=== PATIENT | female | born 1930 | race Caucasian/White ===

== ENCOUNTER 2016-05-09 16:18 | Emergency (ER) | payer MEDICARE ==
--- NOTE | 2016-05-09 16:46 | ERPHSYRPT ---
- History of Present Illness Time Seen by Provider: 05/09/16 16:43 Patient Subjective Stated Complaint: LEFT KNEE PAIN SINCE YESTERDAY EVENING. HX OF ARTHRITIS AND THINKS THIS IS A FLARE UP Triage Nursing Assessment: TO ROOM PER EMS COT. SKIN W/D COLOR NORMAL. RESP NONLABORED. HAS 4 PLUS PITTING EDEMA BOTH LOWER LEGS AND FEET. PATIENT STATES THIS IS NORMAL. NO APPARENT INCREASED SWELLING TO LEFT KNEE, NO OBVIOUS SIGN OF INJURY. FAINT BILATERAL PEDAL PULSES. FEET WARM. Physician History: 86-year-old female with significant past medical history of hypertension, congestive heart failure, severe osteoarthritis and osteoporosis came to the emergency room with sudden development of the swelling on her left knee joint since yesterday and got worse today, so she came to the emergency room. She denies any fall. Timing/Duration: yesterday Associated Symptoms: denies symptoms Allergies/Adverse Reactions: Sulfa (Sulfonamide Antibiotics) Adverse Reaction (Mild, Verified 05/09/16 16:32) Nausea and Vomiting Home Medications: Furosemide [Lasix] 40 mg PO DAILY 06/24/13 [History] Potassium Chloride [Klor-Con 8] 8 meq PO DAILY 02/04/15 [History] Gabapentin [Neurontin] 300 mg PO TID 11/06/15 [History] Alprazolam 0.25 mg [xanAX 0.25 MG] 0.25 mg PO HS 05/09/16 [History] Ascorbate Calcium [Pam-C] 500 mg PO DAILY 05/09/16 [History] Lisinopril 10 mg [Zestril 10 MG] 10 mg PO DAILY 05/09/16 [History] Hx Tetanus, Diphtheria Vaccination/Date Given: Yes Hx Influenza Vaccination/Date Given: Yes Hx Pneumococcal Vaccination/Date Given: Yes - Review of Systems Constitutional: No Symptoms Eyes: No Symptoms Ears, Nose, & Throat: No Symptoms Respiratory: No Symptoms Cardiac: No Symptoms Abdominal/Gastrointestinal: No Symptoms Genitourinary Symptoms: No Symptoms Musculoskeletal: Joint Pain, Joint Swelling (left knee) - Past Medical History Pertinent Past Medical History: Yes Neurological History: TIA ENT History: Cataracts Cardiac History: Hypertension Respiratory History: No Pertinent History Endocrine Medical History: No Pertinent History Musculoskeletal History: Arthritis, Degenerative Disk Disease, Fractures, Osteoarthritis, Other GI Medical History: No Pertinent History History: No Pertinent History Psycho-Social History: No Pertinent History, Other Female Reproductive Disorders: No Pertinent History Other Medical History: swelling ble skin scratches on lower extremities - Past Surgical History Past Surgical History: Yes Neuro Surgical History: No Pertinent History Cardiac: No Pertinent History Respiratory: No Pertinent History Gastrointestinal: No Pertinent History Genitourinary: No Pertinent History Musculoskeletal: Other Female Surgical History: No Pertinent History Other Surgical History: Right shoulder OR in 1950, h/o right shoulder dislocation. 1988, pt states she has limited ROM. BACK SURGERY 2016 - Social History Smoking Status: Never smoker Exposure to second hand smoke: No Alcohol Use: None Drug Use: none Patient Lives Alone: Yes Significant Family History: no pertinent family hx - Female History Hx Now: No - Nursing Vital Signs Nursing Vital Signs: Initial Vital Signs Temperature 97.9 F Pulse Rate 74 Respiratory Rate 18 Blood Pressure [] 146/53 Pain Intensity 8 - Physical Exam General Appearance: no apparent distress, alert Eye Exam: PERRL/EOMI, eyes nml inspection Ears, Nose, Throat Exam: normal ENT inspection, TMs normal, pharynx normal, moist mucous membranes Neck Exam: normal inspection, non-tender, supple, full range of motion Respiratory Exam: normal breath sounds, lungs clear, No respiratory distress Cardiovascular Exam: regular rate/rhythm, normal heart sounds, normal peripheral pulses Gastrointestinal/Abdomen Exam: soft, normal bowel sounds, No tenderness, No mass Back Exam: normal inspection, normal range of motion, No CVA tenderness, No vertebral tenderness Extremity Exam: normal inspection, pelvis stable, inflammation (left knee), limited range of motion, swelling Neurologic Exam: alert, oriented x 3, cooperative, normal mood/affect, nml cerebellar function, nml station & gait, sensation nml, No motor deficits Skin Exam: normal color, warm, dry, No rash Lymphatic Exam: No adenopathy SpO2: 96 Oxygen Delivery: Room Air - Radiology Exams Knee X-ray Interpretation: Reviewed by me Ordered Tests: Active Orders 24 hr Category Date Time Status KNEE (3 VIEWS) Stat Exams 05/09/16 16:42 Taken CBC W DIFF Stat Lab 05/09/16 16:54 Completed CMP Stat Lab 05/09/16 16:54 Completed Uric Acid Stat Lab 05/09/16 16:54 Completed Medication Summary Discontinued Medications Generic Name Dose Route Start Last Admin Trade Name Freq PRN Reason Stop Dose Admin Ketorolac Tromethamine 60 mg 05/09/16 17:28 05/09/16 17:31 Toradol 30 Mg Injection IM 05/09/16 17:29 60 mg STAT ONE Administration Lab/Rad Data: Laboratory Result Diagrams 05/09/16 16:54 05/09/16 16:54 Laboratory Results 05/09/16 05/09/16 Range/Units 16:54 16:54 WBC 7.0 (4.0-10.5) K/mm3 RBC 3.85 L (4.1-5.4) M/mm3 Hgb 11.5 L (12.0-16.0) gm/dl Hct 36.7 (35-47) % MCV 95.3 (78-100) fl MCH 29.8 (26-32) pg MCHC 31.3 L (32-36) g/dl RDW 15.1 H (11.5-14.0) % Plt Count 182 (150-450) K/mm3 MPV 11.3 H (6-9.5) fl Gran % 81.4 H (36.0-66.0) % Lymphocytes % 11.1 L (24.0-44.0) % Monocytes % 6.5 (0.0-12.0) % Eosinophils % 0.4 (0.00-5.0) % Basophils % 0.6 (0.0-0.4) % Basophils # 0.04 (0-0.4) Sodium 140 (136-145) mEq/L Potassium 4.2 (3.5-5.1) mEq/L Chloride 102 (98-107) mEq/L Carbon Dioxide 27.6 (21-32) mEq/L Anion Gap 14.5 (5-15) MEQ/L BUN 20 (9-20) mg/dL Creatinine 1.26 (0.55-1.30) mg/dl Estimated GFR 43 ML/MIN Glucose 107 (70-110) MG/DL Uric Acid 7.1 H (2.6-6.0) mg/dL Calcium 9.9 (8.5-10.1) mg/dL Total Bilirubin 0.7 (0.2-1.0) mg/dL AST 45 H (15-37) U/L ALT 22 (12-78) U/L Alkaline Phosphatase 107 (46-116) U/L Serum Total Protein 7.2 (6.4-8.2) gm/dL Albumin 3.6 (3.4-5.0) g/dL - Progress Progress: unchanged, pain not gone completely Counseled pt/family regarding: lab results, diagnosis, need for follow-up, rad results - Departure Time of Disposition: 17:32 Departure Disposition: Home Clinical Impression: Gouty bursitis, Gout, arthritis Condition: Stable Critical Care Time: No Referrals: CARMEN EDWARDS [Primary Care Provider] - Instructions: Gout Additional Instructions: Please follow the instructions given to you. Please take your medication as prescribed if given. If symptoms recur or get worse, come back to the emergency room if you cannot reach your primary care physician, or call your primary care physician for an appointment. Again if your symptoms get worse, come back to the emergency room. Thanks for visiting emergency room, and let us take care of you. Prescriptions: Indomethacin 25 mg [Indocin 25 MG] 25 mg PO TID #30 capsule
[2016-05-09 16:57] LABS: BASOPHIL % 0.6 % (0.0-0.4); Eosinophil % 0.4 % (0.00-5.0); Granulocytes % 81.4 % (36.0-66.0); Lymphocytes % 11.1 % (24.0-44.0); Mean Cell Volume 95.3 fl (78-100); Mean Platelet Volume 11.3 fl (6-9.5); Monocytes % 6.5 % (0.0-12.0); Platelet Count 182 K/mm3 (150-450); Red Blood Count 3.85 M/mm3 (4.1-5.4); Red Cell Distribution Width 15.1 % (11.5-14.0)
[2016-05-09 16:59] LABS: Mean Corpuscular Hemoglobin 29.8 pg (26-32)
[2016-05-09 17:17] LABS: ALBUMIN 3.6 g/dL (3.4-5.0); ANION GAP 14.5 MEQ/L (5-15); BILIRUBIN,TOTAL 0.7 mg/dL (0.2-1.0); Carbon Dioxide 27.6 mEq/L (21-32); Potassium 4.2 mEq/L (3.5-5.1); Total Protein 7.2 gm/dL (6.4-8.2)
[2016-05-09] MEDS ORDERED: TORAdol 30 mg Injection IM ONE (17:28)
[2016-05-09] MEDS ORDERED: TORAdol 30 mg Injection ONE (17:31)
[2016-05-09 17:59] VITALS: BP 153/89; PULSE 89; O2SAT 97
--- NOTE | 2016-05-09 20:03 | XRAY ---
Indication: Pain. Comparison: May, 3 views of the left knee again demonstrates age-related osteopenia and minimal medial degenerative joint space narrowing. Interval healed patellar fracture with remnant posterior cortical depression. New scattered vascular calcifications. No other bony, articular, or soft tissue abnormalities. Impression: Nonacute left knee with chronic features.
== END 2016-05-09 18:13 | disposition home or self-care (01) ==
LOC: ED 16:18
DX: M10.9 Gout, unspecified (principal); M19.90 Unspecified osteoarthritis, unspecified site; M25.562 Pain in left knee; I10 Essential (primary) hypertension; I50.9 Heart failure, unspecified; Z86.73 Personal history of transient ischemic attack (TIA), and cerebral infarction without residual deficits
CPT/HCPCS: 36415; 73562; 80053; 84550; 85025; 96372; 99283; J1885

== ENCOUNTER 2016-06-14 12:25 | Inpatient (IN) | payer MEDICARE ==
[2016-06-14] MEDS ORDERED: Lasix 40 MG/4 ML IV ONE (12:52)
--- NOTE | 2016-06-14 13:03 | ERPHSYRPT ---
- History of Present Illness Time Seen by Provider: 06/14/16 12:40 Source: patient, family, EMS Exam Limitations: clinical condition Patient Subjective Stated Complaint: pt states she was standing in kitchen and states "my legs wouldn't hold me anymore and eased myself to the floor and then couldn't get up". niece states pt has had increased swelling in both lower extremities and niec concerned pt has a uti. niece also states she does not feel the patient is safe to stay by herself any longer. Triage Nursing Assessment: pt pink, warm, dry. pt alert to placed. 3 plus pitting edema noted to bilateral feet. pulses heard with doppler. pt c/o bilateral knee pain. Physician History: PATIENT WITH HISTORY OF HYPERTENSION, TRANSIENT ISCHEMIC ATTACK, COMPLAINS OF FEELING WEAK, LEANED DOWN ONTO THE FLOOR FOR DURATION OF 5 HOURS TODAY, TOO WEAK TO STAND OFF FLOOR. HAD SIMILAR EPISODE LAST WEEK PER NIECE. HAS DEVELOPED MARKED IN LEGS. DENIES HEADACHE, HEAD OR NECK INJURY, DYSPNEA, CHEST PAIN, NAUSEA OR EMESIS. Occurred: this morning Reason for Fall: unknown (LEANED TO FLOOR DUE TO WEAKNESS) Injuries/Pain Location: no injury Loss of Consciousness: no loss of consciousness Severity of Pain-Max: none Severity of Pain-Current: none Modifying Factors: Improves With: other (TOO WEAK TO GET OFF FLOOR) Allergies/Adverse Reactions: Sulfa (Sulfonamide Antibiotics) Adverse Reaction (Mild, Verified 06/14/16 12:38) Nausea and Vomiting Home Medications: Furosemide [Lasix] 40 mg PO DAILY 06/24/13 [History] Potassium Chloride [Klor-Con 8] 8 meq PO DAILY 02/04/15 [History] Gabapentin [Neurontin] 300 mg PO TID 11/06/15 [History] Alprazolam 0.25 mg [xanAX 0.25 MG] 0.25 mg PO HS 05/09/16 [History] Ascorbate Calcium [Pam-C] 500 mg PO DAILY 05/09/16 [History] Lisinopril 10 mg [Zestril 10 MG] 10 mg PO DAILY 05/09/16 [History] Hx Tetanus, Diphtheria Vaccination/Date Given: Yes (up to date) Hx Influenza Vaccination/Date Given: Yes Hx Pneumococcal Vaccination/Date Given: No Immunizations Up to Date: Yes - Review of Systems Constitutional: Weakness, No Fever, No Chills Eyes: No Symptoms Ears, Nose, & Throat: No Symptoms Respiratory: No Symptoms, No Cough, No Dyspnea Cardiac: No Symptoms, No Chest Pain, No Edema, No Syncope Abdominal/Gastrointestinal: No Symptoms, No Abdominal Pain, No Nausea, No Vomiting, No Diarrhea Genitourinary Symptoms: No Dysuria Musculoskeletal: Other (SWELLING IN LEGS), No Back Pain, No Neck Pain Skin: No Rash Neurological: No Dizziness, No Focal Weakness, No Sensory Changes Psychological: No Symptoms Endocrine: No Symptoms All Other Systems: Reviewed and Negative - Past Medical History Pertinent Past Medical History: Yes Neurological History: TIA ENT History: Cataracts Cardiac History: Hypertension Respiratory History: No Pertinent History Endocrine Medical History: No Pertinent History Musculoskeletal History: Arthritis, Degenerative Disk Disease, Fractures, Osteoarthritis, Other GI Medical History: No Pertinent History History: No Pertinent History Psycho-Social History: No Pertinent History, Other Female Reproductive Disorders: No Pertinent History Other Medical History: swelling ble skin scratches on lower extremities - Past Surgical History Past Surgical History: Yes Neuro Surgical History: No Pertinent History Cardiac: No Pertinent History Respiratory: No Pertinent History Gastrointestinal: No Pertinent History Genitourinary: No Pertinent History Musculoskeletal: Other Female Surgical History: No Pertinent History Other Surgical History: Right shoulder OR in 1950, h/o right shoulder dislocation. 1988, pt states she has limited ROM. BACK SURGERY 2016 - Social History Smoking Status: Never smoker Exposure to second hand smoke: No Alcohol Use: None Drug Use: none Patient Lives Alone: No Significant Family History: no pertinent family hx - Female History Hx Now: No - Nursing Vital Signs Nursing Vital Signs: Initial Vital Signs Pulse Rate 89 Respiratory Rate 18 Blood Pressure [] 132/73 Pain Intensity 0 - [place] Coma Score Best Eye Response (Chuck): (4) open spontaneously Best Verbal Response (Chuck): (5) oriented Best Motor Response ([place]): (6) obeys commands Chuck Total: 15 - Physical Exam General Appearance: no apparent distress, alert Head Injury: no evidence of injury Eye Exam: PERRL/EOMI ENT Exam: airway nml Neck Exam: supple, normal inspection, No tenderness Respiratory/Chest Exam: normal breath sounds, No chest tenderness, No respiratory distress Cardiovascular Exam: normal heart sounds, regular rate/rhythm Gastrointestinal Exam: soft, normal bowel sounds (NONTENDER), No tenderness, No distention, No guarding, No ecchymosis Back Exam: normal inspection, No vertebral tenderness Extremity Exam: normal range of motion, pelvis stable, pedal edema (2+ PITTING EDEMA BILATERAL FEET TO PROXIMAL THIGHS), other (NO CALF TENDERNESS), No deformities Peripheral Pulses: carotid (R): 2+, carotid (L): 2+, femoral (R): 2+, femoral (L ): 2+, dorsalis-pedis (R): 2+, dorsalis-pedis (L): 2+ Neurologic Exam: alert, oriented x 3, cooperative, sensation nml, No motor deficits Skin Exam: normal color, warm, dry SpO2 Interpretation: normal SpO2: 98 Oxygen Delivery: Room Air - Course EKG Interpreted by Me: RATE, Sinus Rhythm (RATE 93), NORMAL AXIS - Radiology Exams Chest X-ray Interpretation: Discussed w/ radiologist (HYPERINFLATION, CHRONIC LUNG MARKINGS, TINY CALCIFIED GRANULOMAS) Pelvis X-ray Interpretation: Discussed w/ radiologist, Negative Right Knee X-ray Interpretation: Discussed w/ radiologist (OSTEOPENIA, MINIMALL DEPRESSED LATERAL TIBIAL PLATEAU FRACTURE, AND SMALL SUPRAPATELLAR EFFUSION) Left Knee X-ray Interpretation: Discussed w/ radiologist (OSTEOPENIA, MEDIAL DEGENERATIVE JOINT SPACE NARROWING AND OLD PATELLA FRACTURE) - Radiology Ultrasound Exam Venous Lower Extremity Ultrasound: discussed w/radiologist (NO EVIDENCE OF DVT) Ordered Tests: Active Orders 24 hr Category Date Time Status Bedrest with BRP/BSC ROUTINE Activity 06/14/16 15:20 Ordered Admission/Status Order ROUTINE Care 06/14/16 15:19 Ordered Call Admit Doctor for Orders ON ADMISSION Care 06/14/16 15:20 Ordered Risk Manager STAT Care 06/14/16 12:52 Active Cath [Catheter-[place] [facility]] STAT Care 06/14/16 12:49 Active Code Status Order ROUTINE Care 06/14/16 15:19 Ordered EKG-ER Only STAT Care 06/14/16 12:52 Active IV Care Q6H Care 06/14/16 15:19 Ordered IV Insertion STAT Care 06/14/16 12:52 Active Intake and Output Q12H Care 06/14/16 15:19 Ordered Telemetry ROUTINE Care 06/14/16 15:19 Ordered Vital Signs Q4H Care 06/14/16 15:19 Ordered Regular Diet Diet 06/14/16 Dinner Ordered CHEST 1 VIEW (PORTABLE) Stat Exams 06/14/16 12:54 Completed KNEE (3 VIEWS) Stat Exams 06/14/16 12:55 Completed KNEE (3 VIEWS) Stat Exams 06/14/16 12:55 Completed PELVIS (1 OR 2 VIEWS) Stat Exams 06/14/16 12:55 Completed VENOUS BILATERAL EXTREMITY [US] Stat Exams 06/14/16 14:37 Taken CBC W DIFF Stat Lab 06/14/16 13:15 Completed CK-Creatinine Phosphokinase Stat Lab 06/14/16 13:15 Completed CMP Stat Lab 06/14/16 13:15 Completed D-DIMER QUANTITATION Stat Lab 06/14/16 13:15 Completed Manual Differential NC Stat Lab 06/14/16 13:15 Completed TROPONIN Q3H Lab 06/14/16 13:15 Completed TROPONIN Q3H Lab 06/14/16 16:00 Ordered TROPONIN Q3H Lab 06/14/16 19:00 Ordered TROPONIN Q3H Lab 06/14/16 22:00 Ordered TROPONIN Q3H Lab 06/15/16 01:00 Ordered UA W/ MICROSCOPIC Stat Lab 06/14/16 13:15 Completed Oxygen NASAL CANNULA 2 lpm RT 06/14/16 15:19 Ordered Transfer Order Routine Transfer 06/14/16 15:18 Ordered Medication Summary Discontinued Medications Generic Name Dose Route Start Last Admin Trade Name Naty PRN Reason Stop Dose Admin Furosemide 40 mg 06/14/16 12:52 06/14/16 13:34 Lasix 40 Mg/4 Ml IV 06/14/16 12:53 40 mg STAT ONE Administration Furosemide Confirm 06/14/16 13:33 Lasix 40 Mg/4 Ml Administered 06/14/16 13:34 Dose 40 mg .ROUTE .STK-MED ONE Lab/Rad Data: Laboratory Result Diagrams 06/14/16 13:15 06/14/16 13:15 Laboratory Results 06/14/16 06/14/16 06/14/16 Range/Units 13:15 13:15 13:15 WBC (4.0-10.5) K/mm3 RBC (4.1-5.4) M/mm3 Hgb (12.0-16.0) gm/dl Hct (35-47) % MCV (78-100) fl MCH (26-32) pg MCHC (32-36) g/dl RDW (11.5-14.0) % Plt Count (150-450) K/mm3 MPV (6-9.5) fl D-Dimer 4.458 H* (0.00-0.49) mg/L Sodium (136-145) mEq/L Potassium (3.5-5.1) mEq/L Chloride (98-107) mEq/L Carbon Dioxide (21-32) mEq/L Anion Gap (5-15) MEQ/L BUN (9-20) mg/dL Creatinine (0.55-1.30) mg/dl Estimated GFR ML/MIN Glucose (70-110) MG/DL Calcium (8.5-10.1) mg/dL Total Bilirubin (0.2-1.0) mg/dL AST (15-37) U/L ALT (12-78) U/L Alkaline Phosphatase (46-116) U/L Creatine Kinase (26-192) U/L Troponin I < 0.017 (0.000-0.056) ng/ml Serum Total Protein (6.4-8.2) gm/dL Albumin (3.4-5.0) g/dL Ur Collection Type CATH Urine Color YELLOW (YELLOW) Urine Appearance CLEAR (CLEAR) Urine pH 5.5 (5-6) Ur Specific [place] 1.015 (1.005-1.025) Urine Protein NEGATIVE (Negative) Urine Glucose (UA) NEGATIVE (NEGATIVE) mg/dL Urine Ketones NEGATIVE (NEGATIVE) Urine Nitrite NEGATIVE (NEGATIVE) Urine Bilirubin NEGATIVE (NEGATIVE) Urine Urobilinogen 0.2 (0-1) mg/dL Urine WBC (Auto) NEGATIVE (NEGATIVE) Urine RBC (Auto) MODERATE (0-5) Mark/ul Urine Microscopic RBC 0-2 (0-2) /HPF Urine Microscopic WBC 0-2 (0-5) /HPF Ur Epithelial Cells RARE (FEW) /HPF Specimen Received 06-14-16 1315 06/14/16 06/14/16 Range/Units 13:15 13:15 WBC 7.9 (4.0-10.5) K/mm3 RBC 4.01 L (4.1-5.4) M/mm3 Hgb 11.9 L (12.0-16.0) gm/dl Hct 37.7 (35-47) % MCV 94.0 (78-100) fl MCH 29.6 (26-32) pg MCHC 31.6 L (32-36) g/dl RDW 14.8 H (11.5-14.0) % Plt Count 179 (150-450) K/mm3 MPV 10.8 H (6-9.5) fl D-Dimer (0.00-0.49) mg/L Sodium 138 (136-145) mEq/L Potassium 4.5 (3.5-5.1) mEq/L Chloride 101 (98-107) mEq/L Carbon Dioxide 25.0 (21-32) mEq/L Anion Gap 16.7 H (5-15) MEQ/L BUN 41 H (9-20) mg/dL Creatinine 1.78 H (0.55-1.30) mg/dl Estimated GFR 29 ML/MIN Glucose 140 H (70-110) MG/DL Calcium 10.3 H (8.5-10.1) mg/dL Total Bilirubin 0.3 (0.2-1.0) mg/dL AST 26 (15-37) U/L ALT 18 (12-78) U/L Alkaline Phosphatase 113 (46-116) U/L Creatine Kinase 119 (26-192) U/L Troponin I (0.000-0.056) ng/ml Serum Total Protein 7.4 (6.4-8.2) gm/dL Albumin 3.8 (3.4-5.0) g/dL Ur Collection Type Urine Color (YELLOW) Urine Appearance (CLEAR) Urine pH (5-6) Ur Specific [place] (1.005-1.025) Urine Protein (Negative) Urine Glucose (UA) (NEGATIVE) mg/dL Urine Ketones (NEGATIVE) Urine Nitrite (NEGATIVE) Urine Bilirubin (NEGATIVE) Urine Urobilinogen (0-1) mg/dL Urine WBC (Auto) (NEGATIVE) Urine RBC (Auto) (0-5) Mark/ul Urine Microscopic RBC (0-2) /HPF Urine Microscopic WBC (0-5) /HPF Ur Epithelial Cells (FEW) /HPF Specimen Received - Progress Progress Note: 06/14/16 14:35 SALINE LOCK, GIVEN LASIX 40MG IV, DIURESIS 600ML URINE Discussed with DrCuauhtemoc: Scarlett Will see patient in: hospital (full admit) (AT 1436 FOR ADMISSION) - Departure Time of Disposition: 15:30 Departure Disposition: Observation Clinical Impression: RENAL INSUFFICIENCY, DEPENDENT EDEMA Condition: Stable Critical Care Time: No Referrals: CARMEN EDWARDS [Primary Care Provider] -
[2016-06-14 13:26] LABS: Collection Type CATH; Ph 5.5 (5-6)
[2016-06-14 13:27] LABS: COMPLETE URINE MICROSCOPIC? YES; Epithelial Cells RARE /HPF (FEW); WBC 0-2 /HPF (0-5)
[2016-06-14 13:28] LABS: Mean Platelet Volume 10.8 fl (6-9.5); Platelet Count 179 K/mm3 (150-450); Red Blood Count 4.01 M/mm3 (4.1-5.4); Red Cell Distribution Width 14.8 % (11.5-14.0); White Blood Count 7.9 K/mm3 (4.0-10.5)
[2016-06-14] MEDS ORDERED: Lasix 40 MG/4 ML ONE (13:33)
--- NOTE | 2016-06-14 13:34 | XRAY ---
Indication: Cough. Status post fall. Comparison: November 05, 2015. Portable chest hyperinflated and clear again with chronic lung markings and tiny calcified granulomas. Heart is not enlarged. Vascularity normal. Bony thorax intact again with osteopenia and scoliosis. New findings including old right clavicle and multiple old right rib fractures. Impression: Nonacute chest with chronic features.
--- NOTE | 2016-06-14 13:37 | XRAY ---
Indication: Fall. Comparison: May 09, 2016. 3 views of the left knee unchanged again demonstrating scattered vascular calcifications, osteopenia, medial degenerative joint space narrowing, and old patellar fracture with remnant posterior cortical depression. No new/acute findings.
--- NOTE | 2016-06-14 13:40 | XRAY ---
Indication: Fall. Comparison: None 3 views of the right knee demonstrates osteopenia, minimal medial compartment joint space narrowing, and scattered vascular calcifications. There is minimally depressed lateral tibial plateau fracture and small suprapatellar effusion. Remainder knee unremarkable.
[2016-06-14 13:41] LABS: Mean Corpuscular Hemoglobin 29.6 pg (26-32)
--- NOTE | 2016-06-14 13:42 | XRAY ---
Indication: Fall. Comparison: November 05, 2015. Single AP pelvis demonstrates old right inferior pubic bone fracture with stable osteopenia, scattered vascular calcifications, and lower lumbar kyphoplasty. No new/acute findings.
[2016-06-14 13:55] LABS: ALBUMIN 3.8 g/dL (3.4-5.0); ANION GAP 16.7 MEQ/L (5-15); BILIRUBIN,TOTAL 0.3 mg/dL (0.2-1.0); Potassium 4.5 mEq/L (3.5-5.1); Total Protein 7.4 gm/dL (6.4-8.2)
[2016-06-14] MEDS ORDERED: Zofran 4 MG/2 ML VIAL IV PRN (15:19)
[2016-06-14] MEDS ORDERED: TYLENOL 325 MG PO PRN ×2 (15:19→16:44)
--- NOTE | 2016-06-14 15:24 | XRAY ---
Indication: Bilateral leg swelling. Two-dimensional sonogram and color Doppler imaging of the major venous vessels of the left and right leg was performed. Comparison: None No thrombus seen in the examined deep venous vessels of the left and right leg including greater saphenous veins. Veins demonstrate normal compressibility. Venous waveforms are normal with and without augmentation. Lower leg demonstrates mild subcutaneous edema bilaterally. Impression: Left and right legs negative for DVT.
[2016-06-14] MEDS ORDERED: Sodium Chloride 0.9% 1000 ML 1,000 ML IV SCH (15:30)
[2016-06-14] MEDS ORDERED: OXYCODONE HCL 15 MG PO PRN (16:44)
[2016-06-14] MEDS ORDERED: Duragesic 50MCG Patch TOP SCH (17:00)
[2016-06-14] MEDS: Neurontin 100 MG PO SCH ×2 (18:23→22:23)
[2016-06-14] MEDS: xanAX 0.25 MG PO SCH ×2 (18:23→22:23)
[2016-06-14] MEDS: PLAVIX 75 MG Tablet PO SCH (18:26)
[2016-06-14] MEDS: Vitamin C 500 MG PO SCH (18:28)
--- NOTE | 2016-06-14 18:39 | PCM.HP ---
History of Present Illness - Chief Complaint Chief Complaint: fall renal insufficiency Date: 06/14/16 History of Present Illness: is a 86 year old female. who lives alone in the [place] and has been having chronic worsening gait disturbance and increasing falls. She has been reluctant to accept additional help from facility or home health and was initially doing a little better last month before having increasing pain starting 4 days ago in her right knee and has fallen 3 times since then is unable to place weight on the right leg without pain. She fell this am and could not get up and was there for a couple hours. She has the pain on the lateral aspect of her right knee. She has been sleeping in her recliner with her legs dependent. She had appointment set for but today's fall she was brought to the ED. She has had worsening swelling and redness in her right leg with the chronic swelling in the bilateral lower extremities. - Review of Systems Constitutional: Fatigue, Lethargy, Weakness, No Fever, No Chills Ears, Nose, & Throat: No Nose Discharge, No Mouth Swelling, No Hoarse Respiratory: No Cough, No Orthopnea, No Short Of Breath Cardiac: Edema, No Chest Pain, No Palpitations, No Syncope Abdominal/Gastrointestinal: Constipation, No Abdominal Pain, No Nausea, No Vomiting, No Diarrhea Genitourinary Symptoms: No Dysuria, No Frequency, No Hematuria Musculoskeletal: Arthralgias, Back Pain, Neck Pain, Fall, Injury, Joint Pain, Joint Swelling Skin: Cellulitis, Pruritis, Rash, Dryness Neurological: Dizziness, Gait Changes, No Focal Weakness, No Speech Changes Psychological: Anxiety, No Alcohol Abuse, No Drug Abuse, No Suicidal Ideations Hematologic/Lymphatic: Anemia, No Blood Clots Medications & Allergies Home Medications: Home Medication List Furosemide [Lasix] 40 mg PO DAILY 06/24/13 [History Confirmed 06/14/16] Potassium Chloride [Klor-Con 8] 8 meq PO DAILY 02/04/15 [History Confirmed 06/14] Acetaminophen 325 mg [Tylenol 325 mg] 650 mg PO Q6H PRN #0 tablet [Rx Confirmed 06/14/16] Fentanyl 50Mcg Patch [Duragesic 50MCG Patch] 50 mcg TOP Q3D #10 patch.td72 11/10/15 [Rx Confirmed 06/14/16] Alprazolam 0.25 mg [xanAX 0.25 MG] 0.25 mg PO TID 05/09/16 [History Confirmed 06/14/16] Ascorbate Calcium [Pam-C] 500 mg PO DAILY 05/09/16 [History Confirmed 06/14/16 ] Indomethacin 25 mg [Indocin 25 MG] 25 mg PO TID #30 capsule 05/09/16 [Rx Confirmed 06/14/16] Ascorbate Calcium/Bioflav [Pma-C 500 mg Tablet] 1 each PO DAILY 06/14/16 [ History Confirmed 06/14/16] Clopidogrel Bisulfate 75 mg [PLAVIX 75 MG Tablet] 75 mg PO DAILY 06/14/16 [History Confirmed 06/14/16] Gabapentin [Neurontin] 200 mg PO TID 06/14/16 [History Confirmed 06/14/16] Lisinopril [Zestril 40 mg] 40 mg PO DAILY 06/14/16 [History Confirmed 06/14/16] Oxycodone HCl 15 mg PO Q6HPRN PRN 06/14/16 [History Confirmed 06/14/16] Tizanidine HCl 4 mg [Zanaflex 4 MG] 4 mg PO Q8HPRN PRN 06/14/16 [History Confirmed 06/14/16] Allergies/Adverse Reactions: Allergies Allergy/AdvReac Type Severity Reaction Status Date / Time Sulfa (Sulfonamide AdvReac Mild Nausea and Verified 06/14/16 12:38 Antibiotics) Vomiting - Past Medical History Past Medical History: Yes Neurological History: TIA ENT History: Cataracts Cardiac History: Coronary Artery Disease, Hypertension Respiratory History: No Pertinent History Endocrine Medical History: No Pertinent History Musculoskelatal History: Arthritis, Degenerative Disk Disease, Fractures, Osteoarthritis, Other GI Medical History: No Pertinent History History: No Pertinent History Pyscho-Social History: No Pertinent History, Anxiety, Other Reproductive Disorders: No Pertinent History Comment: swelling ble skin scratches on lower extremities - Female History Are you now?: No - Past Surgical History Past Surgical History: Yes Neuro Surgical History: No Pertinent History Cardiac History: No Pertinent History Respiratory Surgery: No Pertinent History GI Surgical History: No Pertinent History Genitourinary Surgical Hx: No Pertinent History Musculskeletal Surgical Hx: Other Female Surgical History: No Pertinent History Other Surgical History: Right shoulder OR in 1950, h/o right shoulder dislocation. 1988, pt states she has limited ROM. BACK SURGERY 2016 - Social History Smoking Status: Never smoker Exposure to second hand smoke: No Alcohol: None Drug Use: none Significant Family History: no pertinent family hx - Physical Exam Vital Signs: Vital Signs - 24 hr Temp Pulse Resp BP Pulse Ox 06/14/16 16:08 97.9 F 90 18 147/81 95 06/14/16 15:52 97.9 F 90 147/81 06/14/16 15:41 97.9 F 90 18 147/81 95 06/14/16 15:24 98 06/14/16 15:24 81 18 144/63 06/14/16 14:54 89 18 132/73 06/14/16 14:24 85 16 110/59 96 06/14/16 13:35 83 18 119/62 06/14/16 12:30 99 H 18 142/86 98 General Appearance: no apparent distress Neurologic Exam: alert, oriented x 3, cooperative Eye Exam: No scleral icterus, No pale conjunctivae Ears, Nose, Throat Exam: moist mucous membranes Neck Exam: non-tender, supple Respiratory Exam: normal breath sounds, lungs clear Cardiovascular Exam: regular rate/rhythm, normal heart sounds, normal peripheral pulses, No murmur Gastrointestinal/Abdomen Exam: soft, normal bowel sounds, No tenderness, No distention Back Exam: normal inspection Extremity Exam: pedal edema, tenderness, other (right knee tenderness with effusion throughotu right lower leg swelling red warm to touch left leg swelling some redness no warmth.), No calf tenderness Skin Exam: warm, dry Results - Labs Lab/Micro Results: Lab Results-Last 24 Hours 06/14/16 Range/Units 16:14 Troponin I < 0.017 (0.000-0.056) ng/ml Assessment/Plan (1) Tibial plateau fracture, right Current Visit: Yes Status: Acute Qualifiers: Fracture type: closed Assessment & Plan: consult her orthopaedic surgeon Dr. Danielson nonweightbearing right lower extremity elevate legs for the swelling heparin for dvt ppx inpatient admission for acute kidney injury, cellulitis, tibial plateau fracture , recurrent falls. discussed will need rehabilitation stay she is in agreement to this. right lower extremity likely mild cellulitis as well cefazolin renal dosing monitor. Code(s): S82.141A - DISPLACED BICONDYLAR FRACTURE OF RIGHT TIBIA, INIT (2) Acute kidney injury Current Visit: Yes Status: Acute Assessment & Plan: hold lasix (she did get an IV dose in ED with good diuresis) elevated legs hold lisinopril gentle iv hydration Code(s): N17.9 - ACUTE KIDNEY FAILURE, UNSPECIFIED (3) Cellulitis Current Visit: Yes Status: Acute Qualifiers: Site of cellulitis of extremity: lower extremity Laterality: right Code(s): L03.90 - CELLULITIS, UNSPECIFIED (4) Accidental fall Current Visit: Yes Status: Acute Code(s): W19.XXXA - UNSPECIFIED FALL, INITIAL ENCOUNTER (5) Constipation Current Visit: Yes Status: Acute Code(s): K59.00 - CONSTIPATION, UNSPECIFIED
[2016-06-14] MEDS ORDERED: Sodium Chloride 0.9% 1000 ML 1,000 ML ONE (20:18)
[2016-06-14] MEDS: KEFZOL 1 GM/50 ML PREMIX** 50 ML IV SCH (20:24)
[2016-06-14] MEDS ORDERED: NEURONTIN 300 MG PO SCH (22:00)
[2016-06-14] MEDS ORDERED: Heparin 5000 UNITS/0.5 ML (HIGH RISK MED) SQ SCH (22:00)
[2016-06-14] MEDS: Colace 100 MG PO SCH (22:17)
[2016-06-15] MEDS: KEFZOL 1 GM/50 ML PREMIX** 50 ML IV SCH ×4 (06:04→23:20)
[2016-06-15 06:06] LABS: Mean Cell Volume 93.9 fl (78-100); Mean Corpuscular Hemoglobin 29.7 pg (26-32); Mean Platelet Volume 11.1 fl (6-9.5); Platelet Count 148 K/mm3 (150-450); White Blood Count 6.7 K/mm3 (4.0-10.5)
[2016-06-15 06:14] LABS: ANION GAP 10.8 MEQ/L (5-15); Carbon Dioxide 27.8 mEq/L (21-32); Potassium 3.8 mEq/L (3.5-5.1)
[2016-06-15] MEDS ORDERED: CITROMA 296 ML PO ONE (07:48)
--- NOTE | 2016-06-15 07:50 | PCM.NOTE ---
Date and Time: 06/15/16744 Subjective Assessment: she is still having significant pain in the left lower leg but otherwise no complaints no bowel movement Objective Exam General Appearance: no apparent distress Neurologic Exam: alert, oriented x 3, cooperative Skin Exam: warm, dry, other (redness on bilateral lower extremities mildly improved warmth on right lower extremity improved some as well.) Eye Exam: No scleral icterus, No pale conjunctivae Ears, Nose, Throat Exam: moist mucous membranes Neck Exam: non-tender, supple Respiratory Exam: normal breath sounds, lungs clear Cardiovascular Exam: regular rate/rhythm, normal heart sounds, No murmur Gastrointestinal/Abdomen Exam: soft, normal bowel sounds, other (palpable stool in abdomen) Extremity Exam: pedal edema, other (see skin tender right knee area), No calf tenderness OBJECTIVE DATA Vital Signs: Vital Signs - 24 hr Temp Pulse Resp BP Pulse Ox 06/15/16 07:37 98.3 F 68 18 137/65 96 06/15/16 04:00 98.7 F 78 16 178/77 94 L 06/15/16 00:00 97.9 F 60 17 171/80 97 06/14/16 20:00 97.9 F 74 16 121/57 97 06/14/16 16:08 97.9 F 90 18 147/81 95 06/14/16 15:52 97.9 F 90 147/81 06/14/16 15:41 97.9 F 90 18 147/81 95 06/14/16 15:24 98 06/14/16 15:24 81 18 144/63 06/14/16 14:54 89 18 132/73 06/14/16 14:24 85 16 110/59 96 06/14/16 13:35 83 18 119/62 06/14/16 12:30 99 H 18 142/86 98 Pain Assessment - Last Documented Pain Scale Used 0-10 Pain Scale Intake and Output: Intake & Output 06/12/16 06/13/16 06/14/16 06/15/16 11:59 11:59 11:59 11:59 Intake Total 783 Balance 783 Lab Results: Lab Results-Last 24 Hours 06/15/16 06/15/16 Range/Units 05:10 05:10 WBC 6.7 (4.0-10.5) K/mm3 RBC 3.60 L (4.1-5.4) M/mm3 Hgb 10.7 L (12.0-16.0) gm/dl Hct 33.8 L (35-47) % MCV 93.9 (78-100) fl MCH 29.7 (26-32) pg MCHC 31.7 L (32-36) g/dl RDW 15.0 H (11.5-14.0) % Plt Count 148 L (150-450) K/mm3 MPV 11.1 H (6-9.5) fl Sodium 140 (136-145) mEq/L Potassium 3.8 (3.5-5.1) mEq/L Chloride 105 (98-107) mEq/L Carbon Dioxide 27.8 (21-32) mEq/L Anion Gap 10.8 (5-15) MEQ/L BUN 31 H (9-20) mg/dL Creatinine 1.28 (0.55-1.30) mg/dl Estimated GFR 42 ML/MIN Glucose 109 (70-110) MG/DL Calcium 9.4 (8.5-10.1) mg/dL Prealbumin 16.6 L (18.0-35.7) mg/dL Assessment/Plan (1) Tibial plateau fracture, right Current Visit: Yes Status: Acute Qualifiers: Fracture type: closed Assessment & Plan: Dr. Danielson consult pending remain nonweightbearing right lower extremity continue cefazolin for the cellulitis to the right lower extremity edema is improving renal failure is improving continue to hold the lasix and lisinopril but stop the iv fluids d/c the Lara and monitor I/O and renal function adjust the cefazolin for renal dosing change from heparin to lovenox due to better renal function and the slightly lower plts for ppx. add mag citrate for the constipation. will need placement for further rehabilitation services when stable Code(s): S82.141A - DISPLACED BICONDYLAR FRACTURE OF RIGHT TIBIA, INIT (2) Acute kidney injury Current Visit: Yes Status: Acute Code(s): N17.9 - ACUTE KIDNEY FAILURE, UNSPECIFIED (3) Cellulitis Current Visit: Yes Status: Acute Qualifiers: Site of cellulitis of extremity: lower extremity Laterality: right Code(s): L03.90 - CELLULITIS, UNSPECIFIED (4) Accidental fall Current Visit: Yes Status: Acute Code(s): W19.XXXA - UNSPECIFIED FALL, INITIAL ENCOUNTER (5) Constipation Current Visit: Yes Status: Acute Code(s): K59.00 - CONSTIPATION, UNSPECIFIED
[2016-06-15] MEDS ORDERED: [UNRECOGNIZED DRUG - OTHER] PO SCH (10:00)
[2016-06-15] MEDS ORDERED: ASCORBATE CALCIUM 500 MG PO SCH (10:00)
[2016-06-15] MEDS ORDERED: Klor Con 10 MEQ PO SCH (10:00)
[2016-06-15] MEDS ORDERED: ENOXAPARIN SODIUM SQ SCH (10:00)
[2016-06-15] MEDS ORDERED: PREVNAR 13 SYRINGE IM ONE (10:00)
[2016-06-15] MEDS ORDERED: Zestril 10 MG PO SCH (10:00)
[2016-06-15] MEDS ORDERED: ASCORBATE CALCIUM PO SCH (10:00)
[2016-06-15] MEDS ORDERED: Lasix 40 MG/4 ML IV SCH (10:00)
[2016-06-15] MEDS: xanAX 0.25 MG PO SCH ×3 (11:03→23:13)
[2016-06-15] MEDS: PLAVIX 75 MG Tablet PO SCH (11:03)
[2016-06-15] MEDS: Neurontin 100 MG PO SCH ×3 (11:03→23:13)
[2016-06-15] MEDS: Oxy-IR 5 MG PO PRN ×3 (11:15→23:19)
[2016-06-15] MEDS: Vitamin C 500 MG PO SCH (11:17)
[2016-06-15] MEDS: Colace 100 MG PO SCH (23:13)
[2016-06-16 05:55] LABS: ANION GAP 11.4 MEQ/L (5-15); Carbon Dioxide 29.8 mEq/L (21-32); Potassium 4.1 mEq/L (3.5-5.1)
[2016-06-16] MEDS: Oxy-IR 5 MG PO PRN (07:24)
[2016-06-16 07:44] VITALS: BP 119/56; PULSE 75; O2SAT 94
--- NOTE | 2016-06-16 09:16 | PCM.DS ---
Discharge Summary Date of Admission: 06/14/16 18:30 Date of Discharge: 06/16/2016 Admitting Physician: CARMEN EDWARDS Primary Care Provider: CARMEN EDWARDS Allergies Allergies Sulfa (Sulfonamide Antibiotics) Adverse Reaction (Mild, Verified 06/14/16 12:38) Nausea and Vomiting Hospital Summary - Hospital Course Hospital Course: She was falling at home and could not put weight on her right leg. She was dehydrated and admitted for acute kidney injury and then found to have a tibial plateau fracture on the right as well as swelling and warmth consistent with cellulites on the right lower leg. Dr. Danielson was consulted and she was started on cefazolin some gentle iv hydration with the acute kidney injury improving and the cellulites improving. SHe was otherwise doing well but was having the pain in her right knee that was controlled on her high doses of home pain medications. Dr. Danielson reviewed and wished for her to be transferred to [facility] for operative repair of the tibial plateau fracture. - Vitals & Intake/Output Vital Signs: Vital Signs Temperature 97.6 F 06/16/16 07:00 Pulse Rate 75 06/16/16 07:00 Respiratory Rate 18 06/16/16 07:00 Blood Pressure 119/56 06/16/16 07:00 O2 Sat by Pulse Oximetry 94 L 06/16/16 07:00 Intake & Output: Intake & Output 06/13/16 06/14/16 06/15/16 06/16/16 11:59 11:59 11:59 11:59 Intake Total 1263 810 Output Total 1800 Balance 1263 -990 - Lab Result Diagrams: 06/15/16 05:10 06/16/16 05:33 Lab Results-Last 24 Hrs: Lab Results-Last 24 Hours 06/16/16 Range/Units 05:33 Sodium 142 (136-145) mEq/L Potassium 4.1 (3.5-5.1) mEq/L Chloride 105 (98-107) mEq/L Carbon Dioxide 29.8 (21-32) mEq/L Anion Gap 11.4 (5-15) MEQ/L BUN 23 H (9-20) mg/dL Creatinine 1.12 (0.55-1.30) mg/dl Estimated GFR 49 ML/MIN Glucose 94 (70-110) MG/DL Calcium 9.0 (8.5-10.1) mg/dL Discharge Exam Comments: 06/16/16 09:15 See exam 06/15/2016 she was transferred early 06/16/16 prior to evaluation today Final Diagnosis/Problem List - Final Discharge Diagnosis/Problem (1) Tibial plateau fracture, right Status: Acute (2) Acute kidney injury Status: Acute (3) Cellulitis Status: Acute (4) Accidental fall Status: Acute (5) Constipation Status: Acute - Discharge Disposition: DC TO [facility] Condition: Stable Prescriptions: No Action Furosemide [Lasix] 40 mg PO DAILY Potassium Chloride [Klor-Con 8] 8 meq PO DAILY Acetaminophen 325 mg [Tylenol 325 mg] 650 mg PO Q6H PRN #0 tablet PRN Reason: Pain Fentanyl 50Mcg Patch [Duragesic 50MCG Patch] 50 mcg TOP Q3D #10 patch.td72 Ascorbate Calcium [Pam-C] 500 mg PO DAILY Alprazolam 0.25 mg [xanAX 0.25 MG] 0.25 mg PO TID Indomethacin 25 mg [Indocin 25 MG] 25 mg PO TID #30 capsule Tizanidine HCl 4 mg [Zanaflex 4 MG] 4 mg PO Q8HPRN PRN PRN Reason: spasms Ascorbate Calcium/Bioflav [Pam-C 500 mg Tablet] 1 each PO DAILY Gabapentin [Neurontin] 200 mg PO TID Lisinopril [Zestril 40 mg] 40 mg PO DAILY Oxycodone HCl 15 mg PO Q6HPRN PRN PRN Reason: Pain Clopidogrel Bisulfate 75 mg [PLAVIX 75 MG Tablet] 75 mg PO DAILY Follow up with: CARMEN EDWARDS [Primary Care Provider] - Forms: Ambulance Transport Record, Discharge Instructions, Patient Portal Information, Transfer Record Inter-Agency
== END 2016-06-16 07:30 | disposition short-term general hospital (02) | DRG 563 ==
LOC: ED 12:25 → INTOOBSV 15:37 → OBSVTOIN 15:37 → MED SURG 15:37 → OBSVTOIN 18:30
PROVIDERS: ADMIT Family Medicine; ATTEND Family Medicine
DX: S82.141A Displaced bicondylar fracture of right tibia, initial encounter for closed fracture (principal); N17.9 Acute kidney failure, unspecified; L03.115 Cellulitis of right lower limb; K59.00 Constipation, unspecified; W18.39XA Other fall on same level, initial encounter; Z91.81 History of falling; Y92.030 Kitchen in apartment as the place of occurrence of the external cause; D64.9 Anemia, unspecified; M54.2 Cervicalgia; M25.40 Effusion, unspecified joint; M54.9 Dorsalgia, unspecified; R26.89 Other abnormalities of gait and mobility; I25.10 Atherosclerotic heart disease of native coronary artery without angina pectoris; I10 Essential (primary) hypertension; F41.9 Anxiety disorder, unspecified; M19.90 Unspecified osteoarthritis, unspecified site; Z86.73 Personal history of transient ischemic attack (TIA), and cerebral infarction without residual deficits; Z79.899 Other long term (current) drug therapy
CPT/HCPCS: 36000; 36415; 51702; 71010; 72170; 73562; 80048; 80053; 81000; 82550; 84134; 84484; 85025; 85027; 85379; 87086; 90670; 93005; 93041; 93268; 93970; 96374; 99285; G0009; J0690; J1644; J1650; J1940

== ENCOUNTER 2016-08-26 16:42 | Emergency (ER) | payer MEDICARE ==
[2016-08-26 16:55] VITALS: O2SAT 95
--- NOTE | 2016-08-26 17:57 | ERPHSYRPT ---
- History of Present Illness Time Seen by Provider: 08/26/16 17:52 Source: patient Exam Limitations: no limitations Patient Subjective Stated Complaint: pt arrived [facility] via ambulance for right rib pain that started after a fall last night, pt states she was getting out of bed and grabbed for table and it moved on her . she denies any other injury Triage Nursing Assessment: pt alert,resp easy, skin w/d pink, edema to lower legs which is normal for her, pain to right ribs, no brusing noted Physician History: Pt. resting on table when it gave out resulting in fall. Pt. landed on R chest area injuring R chest wall. States pain to R lat. ribs area, sharp pain that is worse with inspiration. Denies any abdominal, pelvis, Bilat UE/LE injuries. Occurred at rehab [facility]. Recently had surgery on L knee and currently on antibiotics. No head injury or any LOC. Pt. talking and aware of what happened. Occurred: yesterday Reason for Fall: fell from standing pos Injuries/Pain Location: chest (R chest wall) Loss of Consciousness: no loss of consciousness Quality: sharpness Severity of Pain-Max: moderate Severity of Pain-Current: moderate Modifying Factors: Improves With: movement (worsens), other (inspiration worsens ) Associated Symptoms (Fall): No abdominal pain, No back pain, No confusion, No dizziness, No extremity injury, No shortness of breath, No trouble walking Allergies/Adverse Reactions: Sulfa (Sulfonamide Antibiotics) Adverse Reaction (Mild, Verified 08/26/16 16:56) Nausea and Vomiting Home Medications: Furosemide [Lasix] 40 mg PO DAILY 06/24/13 [History] Potassium Chloride [Klor-Con 8] 8 meq PO DAILY 02/04/15 [History] Alprazolam 0.25 mg [xanAX 0.25 MG] 0.25 mg PO TID 05/09/16 [History] Ascorbate Calcium [Pam-C] 500 mg PO DAILY 05/09/16 [History] Ascorbate Calcium/Bioflav [Pam-C 500 mg Tablet] 1 each PO DAILY 06/14/16 [ History] Clopidogrel Bisulfate 75 mg [PLAVIX 75 MG Tablet] 75 mg PO DAILY 06/14/16 [History] Gabapentin [Neurontin] 200 mg PO TID 06/14/16 [History] Lisinopril [Zestril 40 mg] 40 mg PO DAILY 06/14/16 [History] Oxycodone HCl 15 mg PO Q6HPRN PRN 06/14/16 [History] Tizanidine HCl 4 mg [Zanaflex 4 MG] 4 mg PO Q8HPRN PRN 06/14/16 [History] Hx Tetanus, Diphtheria Vaccination/Date Given: Yes (up to date) Hx Influenza Vaccination/Date Given: Yes Hx Pneumococcal Vaccination/Date Given: Yes Immunizations Up to Date: Yes - Review of Systems Constitutional: No Fever, No Chills Eyes: No Symptoms Ears, Nose, & Throat: No Symptoms Respiratory: No Cough, No Dyspnea Cardiac: Chest Pain, No Edema, No Syncope Abdominal/Gastrointestinal: No Abdominal Pain, No Nausea, No Vomiting, No Diarrhea Genitourinary Symptoms: No Dysuria Musculoskeletal: No Back Pain, No Neck Pain Skin: No Rash Neurological: No Dizziness, No Focal Weakness, No Sensory Changes Psychological: No Symptoms Endocrine: No Symptoms All Other Systems: Reviewed and Negative - Past Medical History Pertinent Past Medical History: Yes Neurological History: TIA ENT History: Cataracts Cardiac History: Coronary Artery Disease, Hypertension Respiratory History: No Pertinent History Endocrine Medical History: No Pertinent History Musculoskeletal History: Arthritis, Degenerative Disk Disease, Fractures, Osteoarthritis, Other GI Medical History: No Pertinent History History: No Pertinent History Psycho-Social History: No Pertinent History, Anxiety, Other Female Reproductive Disorders: No Pertinent History Other Medical History: swelling ble skin scratches on lower extremities - Past Surgical History Past Surgical History: Yes Neuro Surgical History: No Pertinent History Cardiac: No Pertinent History Respiratory: No Pertinent History Gastrointestinal: No Pertinent History Genitourinary: No Pertinent History Musculoskeletal: Other Female Surgical History: No Pertinent History Other Surgical History: Right shoulder OR in 1950, h/o right shoulder dislocation. 1988, pt states she has limited ROM. BACK SURGERY 2016 - Social History Smoking Status: Never smoker Exposure to second hand smoke: No Alcohol Use: None Drug Use: none Patient Lives Alone: No Significant Family History: no pertinent family hx - Female History Hx Last Menstrual Period: post Hx Now: No - Nursing Vital Signs Nursing Vital Signs: Initial Vital Signs Temperature 97.0 F Temperature Source Oral Pulse Rate 78 Respiratory Rate 16 Blood Pressure [Left Thigh] 152/72 Pain Intensity 10 - Chuck Coma Score Best Eye Response (Chuck): (4) open spontaneously Best Verbal Response (Chuck): (5) oriented Best Motor Response ([place]): (6) obeys commands [place] Total: 15 - Physical Exam General Appearance: no apparent distress, alert Head Injury: no evidence of injury Eye Exam: PERRL/EOMI ENT Exam: airway nml Neck Exam: normal inspection, No tenderness Respiratory/Chest Exam: normal breath sounds, rib tenderness (R lower ribs area with tenderness. No ecchymosis noted.), No chest tenderness, No respiratory distress Cardiovascular Exam: normal heart sounds, regular rate/rhythm Gastrointestinal Exam: soft, No tenderness, No distention, No guarding, No ecchymosis Genitalia Exam: normal genital exam Rectal Exam: deferred Back Exam: normal inspection, No vertebral tenderness Extremity Exam: normal inspection, normal range of motion, pelvis stable, No deformities, No lacerations Peripheral Pulses: dorsalis-pedis (R): 2+, dorsalis-pedis (L): 2+ Neurologic Exam: alert, oriented x 3, cooperative, sensation nml, No motor deficits Skin Exam: normal color, warm, dry SpO2: 95 Oxygen Delivery: Room Air - Course Nursing assessment & vital signs reviewed: Yes - Radiology Exams Ribs X-ray Interpretation: Discussed w/ radiologist, Other (Old R side ribs fxs, no ptx. T-spine DJD) Ordered Tests: Active Orders 24 hr Category Date Time Status CHEST 1 VIEW (PORTABLE) Stat Exams 08/26/16 17:26 Taken RIBS UNILATERAL Stat Exams 08/26/16 17:25 Taken Medication Summary Discontinued Medications Generic Name Dose Route Start Last Admin Trade Name Naty PRN Reason Stop Dose Admin Hydrocodone Bitart/Acetaminophen 1 tab 08/26/16 18:02 08/26/16 18:14 Tyler 5/325 Mg PO 08/26/16 18:03 1 tab STAT ONE Administration Hydrocodone Bitart/Acetaminophen Confirm 08/26/16 18:12 Tyler 5/325 Mg Administered 08/26/16 18:13 Dose 1 tab .ROUTE .STK-MED ONE - Progress Progress: improved Progress Note: 08/26/16 18:55 Pt. given Tyler with some relief of her pain Counseled pt/family regarding: diagnosis, rad results - Departure Time of Disposition: 18:55 Departure Disposition: Extended Care Facility Clinical Impression: Contusion of ribs Condition: Stable Critical Care Time: No Instructions: Contusion Additional Instructions: Take pain meds as instructed previously. Return for worse pain, short of breath, dizziness, weakness or any problems.
[2016-08-26] MEDS ORDERED: NORCO 5/325 MG PO ONE (18:02)
[2016-08-26] MEDS ORDERED: NORCO 5/325 MG ONE (18:12)
[2016-08-26 18:53] VITALS: BP 152/72; PULSE 78
--- NOTE | 2016-08-27 08:37 | XRAY ---
Indication: Right-sided pain following fall. Comparison: June 14, 2016. Portable chest again demonstrates chronic lung markings and calcified granulomas. No focal infiltrate, consolidation, or large effusion. Heart is not enlarged for AP portable technique. Bony thorax again demonstrates osteopenia, multiple old bilateral rib fractures, and spinal compression fractures. New right arm PICC line with the tip projecting over the proximal SVC. Impression: Nonacute chest with chronic features.
--- NOTE | 2016-08-27 08:38 | XRAY ---
Indication: Pain following fall. Comparison: January 19, 2016. 2 views of the right ribs demonstrates interval healing multiple rib fractures and new right arm PICC line. Stable osteopenia, multilevel remote spinal compression fractures, right shoulder degenerative changes, and scattered vascular calcifications. No other bony, articular, or soft tissue abnormalities.
== END 2016-08-26 19:16 | disposition home or self-care (01) ==
LOC: ED 16:42
DX: S20.212A Contusion of left front wall of thorax, initial encounter (principal); W01.0XXA Fall on same level from slipping, tripping and stumbling without subsequent striking against object, initial encounter; Z79.899 Other long term (current) drug therapy
CPT/HCPCS: 71010; 71100; 99283; 99284; A9270-GY

== ENCOUNTER 2016-09-05 09:36 | Inpatient (IN) | payer MEDICARE ==
[2016-09-05] MEDS ORDERED: Cardizem IV 50 MG/10 ML IV ONE ×2 (09:42→09:56)
[2016-09-05] MEDS ORDERED: Sodium Chloride 0.9% 1000 ML 1,000 ML IV SCH (09:45)
--- NOTE | 2016-09-05 09:48 | ERPHSYRPT ---
- History of Present Illness Time Seen by Provider: 09/05/16 09:42 Source: patient, EMS, long term records Physician History: CC: short of air Hx: 86 y/o patient sent from [facility]. She requests DNR status with [facility]. She is on eliauis for chronic afib, but no rate controller noted in med list. She has recently been falling and has been treated for some knee infection at [facility] with Dr Danielson. She has been on vanco and rocephin which continued today. She had some possible allergic reaction with rash. She was given steroids and benadry. She has increased shortness of breath last night and today. It is moderately severe. EMS noted afib RVR and gave neb and oxygen. No fever noted. Pt is keenly alert and denies chest pain or abd pain. Some right shoulder pain. Timing/Duration: yesterday Allergies/Adverse Reactions: Sulfa (Sulfonamide Antibiotics) Adverse Reaction (Mild, Verified 09/05/16 10:03) Nausea and Vomiting Home Medications: Alprazolam 0.25 mg [xanAX 0.25 MG] 0.25 mg PO TIDPRN 09/05/16 [History] Apixaban [Eliquis] 2.5 mg PO BID 09/05/16 [History] Diphenhydramine HCl 25 mg [Benadryl 25 mg Capsule] 25 mg PO Q4H PRN PRN [History] Fentanyl 50Mcg Patch [Duragesic 50MCG Patch] 50 mcg TD UD 09/05/16 [ History] Gabapentin 200 mg PO TID 09/05/16 [History] Oxycodone HCl 30 mg PO Q6HPRN PRN 09/05/16 [History] Potassium Chloride [Klor-Con 8] 8 meq PO BID 09/05/16 [History] Prednisone 20 mg [Deltasone 20 mg] 40 mg PO DAILY 09/05/16 [History] Hx Tetanus, Diphtheria Vaccination/Date Given: Yes (up to date) Hx Influenza Vaccination/Date Given: Yes Hx Pneumococcal Vaccination/Date Given: Yes - Review of Systems Constitutional: Malaise, Weakness, No Fever Eyes: No Symptoms Ears, Nose, & Throat: No Symptoms Respiratory: Dyspnea, No Cough Cardiac: Palpitations, No Chest Pain, No Syncope Abdominal/Gastrointestinal: No Abdominal Pain, No Vomiting Musculoskeletal: Joint Pain (right shoulder) Skin: Rash Neurological: No Focal Weakness, No Headache All Other Systems: Reviewed and Negative - Past Medical History Pertinent Past Medical History: Yes Neurological History: TIA ENT History: Cataracts Cardiac History: Coronary Artery Disease, Hypertension Respiratory History: No Pertinent History Endocrine Medical History: No Pertinent History Musculoskeletal History: Arthritis, Degenerative Disk Disease, Fractures, Osteoarthritis, Other GI Medical History: No Pertinent History History: No Pertinent History Psycho-Social History: No Pertinent History, Anxiety, Other Female Reproductive Disorders: No Pertinent History Other Medical History: swelling ble skin scratches on lower extremities - Past Surgical History Past Surgical History: Yes Neuro Surgical History: No Pertinent History Cardiac: No Pertinent History Respiratory: No Pertinent History Gastrointestinal: No Pertinent History Genitourinary: No Pertinent History Musculoskeletal: Other Female Surgical History: No Pertinent History Other Surgical History: Right shoulder OR in 1949, h/o right shoulder dislocation. 1988, pt states she has limited ROM. BACK SURGERY 2016 - Social History Smoking Status: Never smoker Exposure to second hand smoke: No Alcohol Use: None Drug Use: none Patient Lives Alone: No ([facility] [place]) Significant Family History: no pertinent family hx - Female History Hx Now: No - Nursing Vital Signs Nursing Vital Signs: Initial Vital Signs Temperature 98.9 F Temperature Source Rectal Pulse Rate 151 Respiratory Rate 32 Blood Pressure [] 133/89 Pain Intensity 5 - Physical Exam General Appearance: alert Eye Exam: PERRL/EOMI Ears, Nose, Throat Exam: dry mucous membranes Neck Exam: supple Respiratory Exam: diminished breath sounds Cardiovascular Exam: tachycardia, irregular Gastrointestinal/Abdomen Exam: soft, No tenderness, No distention Extremity Exam: pedal edema, other (knees are without redness) Neurologic Exam: alert, cooperative, No motor deficits Skin Exam: other (mottled ) - Course Nursing assessment & vital signs reviewed: Yes EKG Interpreted by Me: RATE (145), A-fib, NORMAL AXIS, NORMAL QRS (low amplitude ), NORMAL ST-T - Radiology Exams cxr X-ray Interpretation: Reviewed by me (aging chest, CM, new RLL infiltrates) Ordered Tests: Active Orders 24 hr Category Date Time Status Neurobiologist STAT Care 09/05/16 09:42 Active Catheter-[place] STAT Care 09/05/16 09:42 Active EKG-ER Only STAT Care 09/05/16 09:42 Active IV Insertion STAT Care 09/05/16 09:42 Active IV Insertion-2nd Peripheral STAT Care 09/05/16 10:11 Active Oxygen-ED Only NASAL CANNULA 2 lpm Care 09/05/16 09:42 Active Pulse Oximetry (ED) STAT Care 09/05/16 09:42 Active CHEST 1 VIEW (PORTABLE) Stat Exams 09/05/16 09:43 Taken BLOOD CULTURE Stat Lab 09/05/16 09:43 Ordered CBC W DIFF Stat Lab 09/05/16 09:42 Completed CMP Stat Lab 09/05/16 09:42 Completed CULTURE,URINE Stat Lab 09/05/16 09:43 Ordered Lactic Acid Urgent Lab 09/05/16 09:42 Results MAGNESIUM Stat Lab 09/05/16 09:42 Completed Manual Differential NC Stat Lab 09/05/16 09:42 Completed NT PRO BNP Stat Lab 09/05/16 09:42 Completed TROPONIN Q3H Lab 09/05/16 09:45 Completed TROPONIN Q3H Lab 09/05/16 12:45 Ordered TROPONIN Q3H Lab 09/05/16 15:45 Ordered TROPONIN Q3H Lab 09/05/16 18:45 Ordered TROPONIN Q3H Lab 09/05/16 21:45 Ordered UA Stat Lab 09/05/16 09:43 Ordered VENOUS BLOOD GAS Urgent Lab 09/05/16 09:42 Results Medication Summary Generic Name Dose Route Start Last Admin Trade Name Freq PRN Reason Stop Dose Admin Diltiazem HCl 100 mls @ 5 mls/hr 09/05/16 09:42 09/05/16 10:07 Cardizem Drip 100 Mg/100 Ml D5w IV 10/05/16 09:41 5 mg/hr .Q20H PRN 5 mls/hr HEART RATE/ A-FIB Administration Protocol 5 MG/HR Sodium Chloride 1,000 mls @ 50 mls/hr 09/05/16 09:45 09/05/16 09:58 Sodium Chloride 0.9% 1000 Ml IV 10/05/16 09:44 50 mls/hr .Q20H ALFONSO Administration Discontinued Medications Generic Name Dose Route Start Last Admin Trade Name Freq PRN Reason Stop Dose Admin Diltiazem HCl 5 mg 09/05/16 09:42 09/05/16 09:57 Cardizem Iv 50 Mg/10 Ml IV 09/05/16 09:43 5 mg STAT ONE Administration Diltiazem HCl Confirm 09/05/16 09:56 Cardizem Iv 50 Mg/10 Ml Administered 09/05/16 09:57 Dose 50 mg IV .STK-MED ONE Lab/Rad Data: Laboratory Result Diagrams 09/05/16 09:42 09/05/16 09:42 Laboratory Results 09/05/16 09/05/16 09/05/16 Range/Units 09:45 09:42 09:42 WBC (4.0-10.5) K/mm3 RBC (4.1-5.4) M/mm3 Hgb (12.0-16.0) gm/dl Hct (35-47) % MCV (78-100) fl MCH (26-32) pg MCHC (32-36) g/dl RDW (11.5-14.0) % Plt Count (150-450) K/mm3 MPV (6-9.5) fl Segmented Neutrophils (36.0-66.0) % Band Neutrophils (0.0-2.0) % Lymphocytes (Manual) (24-44) % Monocytes (Manual) (0.0-12.0) % Basophils (Manual) (0.0-1.0) % Differential Comment Platelet Estimate (NORMAL) Anisocytosis VBG pH 7.35 (7.32-7.42) VBG pCO2 at Pat Temp 50 (42-55) mm/Hg VBG pO2 at Pat Temp 29 (25-40) mm/Hg VBG HCO3 27.6 (22-28) meq/L VBG O2 Sat ([place]anner) 55.9 L (95-100) VBG Base Excess 1.4 (-2.0-2.0) VBG Hemoglobin 10.9 VBG Carboxyhemoglobin 3.2 (0.0-6.9) % T HGB POC Potassium 4.4 (3.5-5.1) Sodium 138 (136-145) mEq/L Potassium 4.6 (3.5-5.1) mEq/L Chloride 103 (98-107) mEq/L Carbon Dioxide 26.5 (21-32) mEq/L Anion Gap 12.9 (5-15) MEQ/L BUN 28 H (9-20) mg/dL Creatinine 1.34 H (0.55-1.30) mg/dl Estimated GFR 40 ML/MIN Glucose 124 H (70-110) MG/DL Lactic Acid 2.2 H (0.4-2.0) Calcium 9.9 (8.5-10.1) mg/dL Magnesium 2.2 (1.8-2.4) mg/dL Total Bilirubin 0.3 (0.2-1.0) mg/dL AST 26 (15-37) U/L ALT 29 (12-78) U/L Alkaline Phosphatase 181 H (46-116) U/L Troponin I < 0.017 (0.000-0.056) ng/ml NT-Pro-B Natriuret Pep 9481 H (0-450) pg/ml Serum Total Protein 7.2 (6.4-8.2) gm/dL Albumin 3.5 (3.4-5.0) g/dL 09/05/16 Range/Units 09:42 WBC 9.4 (4.0-10.5) K/mm3 RBC 3.96 L (4.1-5.4) M/mm3 Hgb 10.7 L (12.0-16.0) gm/dl Hct 35.1 (35-47) % MCV 88.6 (78-100) fl MCH 27.0 (26-32) pg MCHC 30.5 L (32-36) g/dl RDW 20.4 H (11.5-14.0) % Plt Count 138 L (150-450) K/mm3 MPV 12.0 H (6-9.5) fl Segmented Neutrophils 72 H (36.0-66.0) % Band Neutrophils 1 (0.0-2.0) % Lymphocytes (Manual) 19 L (24-44) % Monocytes (Manual) 7 (0.0-12.0) % Basophils (Manual) 1 (0.0-1.0) % Differential Comment ABNORMAL Platelet Estimate DECREASED (NORMAL) Anisocytosis 1+ VBG pH (7.32-7.42) VBG pCO2 at Pat Temp (42-55) mm/Hg VBG pO2 at Pat Temp (25-40) mm/Hg VBG HCO3 (22-28) meq/L VBG O2 Sat ([place]anner) (95-100) VBG Base Excess (-2.0-2.0) VBG Hemoglobin VBG Carboxyhemoglobin (0.0-6.9) % T HGB POC Potassium (3.5-5.1) Sodium (136-145) mEq/L Potassium (3.5-5.1) mEq/L Chloride (98-107) mEq/L Carbon Dioxide (21-32) mEq/L Anion Gap (5-15) MEQ/L BUN (9-20) mg/dL Creatinine (0.55-1.30) mg/dl Estimated GFR ML/MIN Glucose (70-110) MG/DL Lactic Acid (0.4-2.0) Calcium (8.5-10.1) mg/dL Magnesium (1.8-2.4) mg/dL Total Bilirubin (0.2-1.0) mg/dL AST (15-37) U/L ALT (12-78) U/L Alkaline Phosphatase (46-116) U/L Troponin I (0.000-0.056) ng/ml NT-Pro-B Natriuret Pep (0-450) pg/ml Serum Total Protein (6.4-8.2) gm/dL Albumin (3.4-5.0) g/dL - Progress Progress Note: 09/05/16 10:39 Pt has Afib RVR. Cardizem bolus and gtt started. She is already anticoagulated with eliquis. She has been on rocephin and vanco. 09/05/16 10:[address] Bhavesh Billingsley. Will admit. Pt signed [facility] paperwork. Family here. Discussed with : Scarlett Will see patient in: hospital (full admit) Counseled pt/family regarding: lab results, diagnosis, need for follow-up, rad results - Departure Time of Disposition: 10:46 Departure Disposition: In-patient Admission (ICU) Clinical Impression: Atrial fibrillation with RVR, Healthcare-associated pneumonia, Shortness of breath Condition: Fair Critical Care Time: Yes Critical Care Time(excluding separately billable procedures): 30-74 minutes
[2016-09-05 09:55] LABS: Lactic Acid 2.2 (0.4-2.0); VBG BASE EXCESS 1.4 (-2.0-2.0); VBG CARBOXYHEMOGLOBIN 3.2 % T HGB (0.0-6.9); VBG HCO3- 27.6 meq/L (22-28); VBG HEMOGLOBIN 10.9; VBG O2 SATURATION 55.9 (95-100); VBG POTASSIUM 4.4 (3.5-5.1); VBG pH 7.35 (7.32-7.42)
[2016-09-05] MEDS ORDERED: Sodium Chloride 0.9% 1000 ML 1,000 ML ONE (09:56)
[2016-09-05 10:05] LABS: Mean Cell Volume 88.6 fl (78-100); Platelet Count 138 K/mm3 (150-450); Red Blood Count 3.96 M/mm3 (4.1-5.4); Red Cell Distribution Width 20.4 % (11.5-14.0); White Blood Count 9.4 K/mm3 (4.0-10.5)
[2016-09-05] MEDS: CARDIZEM DRIP 100 MG/100 ML D5W 100 ML IV PRN ×3 (10:07→23:52)
[2016-09-05 10:28] LABS: ALBUMIN 3.5 g/dL (3.4-5.0); ANION GAP 12.9 MEQ/L (5-15); BILIRUBIN,TOTAL 0.3 mg/dL (0.2-1.0); Carbon Dioxide 26.5 mEq/L (21-32); MAGNESIUM 2.2 mg/dL (1.8-2.4); Potassium 4.6 mEq/L (3.5-5.1); Total Protein 7.2 gm/dL (6.4-8.2)
[2016-09-05 10:33] LABS: BAND 1 % (0.0-2.0); Basophil 1 % (0.0-1.0); Platelet Estimate DECREASED (NORMAL); Total Cells Counted 100
[2016-09-05 10:34] LABS: ANISOCYTOSIS 1+
[2016-09-05] MEDS ORDERED: Zosyn 3.375GM/100 Ml D5W 3.375 GM/100 ML IVPB IV STA (10:47)
[2016-09-05 10:52] LABS: COMPLETE URINE MICROSCOPIC? NO; Collection Type CATH; Ph 5.5 (5-6)
[2016-09-05] MEDS ORDERED: Zosyn 3.375GM/100 Ml D5W 3.375 GM/100 ML IVPB IV ONE (10:56)
[2016-09-05] MEDS ORDERED: DUONEB 0.5-3 MG/3 ml Neb IH SCH (11:36)
[2016-09-05] MEDS ORDERED: TYLENOL 325 MG PO PRN ×2 (11:36→16:11)
[2016-09-05] MEDS ORDERED: Lanoxin 0.5 MG/2 ML INJECTION IV ONE (12:03)
[2016-09-05] MEDS ORDERED: BENADRYL 25 MG CAPSULE PO PRN (16:11)
[2016-09-05] MEDS ORDERED: OXYCODONE HCL 30 MG PO PRN (16:11)
[2016-09-05] MEDS ORDERED: Oxy-IR 5 MG PO PRN (16:19)
[2016-09-05] MEDS: Zosyn 3.375GM/100 Ml D5W 3.375 GM/100 ML IVPB IV SCH (17:08)
[2016-09-05] MEDS: Neurontin 100 MG PO SCH ×2 (17:08→21:45)
--- NOTE | 2016-09-05 20:52 | XRAY ---
Indication: Short of breath. Comparison: August 26, 2016. Portable chest now demonstrates cardiomegaly, vascular congestion, and bibasilar effusions favoring cardiac decompensation. Superimposed pneumonia not completely excluded.
[2016-09-05] MEDS: ELIQUIS PO SCH (21:45)
[2016-09-05] MEDS ORDERED: NON-FORMULARY ITEM (Potassium Chloride [Klor-Con 8] 8 MEQ) PO SCH (22:00)
[2016-09-05] MEDS ORDERED: NON-FORMULARY ITEM (Apixaban [Eliquis] 2.5 MG) PO SCH (22:00)
[2016-09-05] MEDS ORDERED: Klor Con 10 MEQ PO SCH (22:00)
--- NOTE | 2016-09-05 22:42 | PCM.HP ---
History of Present Illness - Chief Complaint Chief Complaint: shortness of breath Date: 09/05/16 History of Present Illness: is a 86 year old female. Who was being treated at [facility] after recurrent falls resulted in tibial plateau fx on right and distal femur on left. She then went home had the distal femur hardware reportedly get infected after another fall and this also resulted in a new left tibial plateau fracture so she had the left femur hardware removed and new hardware placed in left tibia [facility]. She had all cultures reported as negative. She was on Vanc and Rocephin from infectious disease but 2 days ago developed an acute rash all over her body and increasing shortness of breath. The antibiotics were stopped and prednisone was started she has been having increasing weakness and shortness of breath since this time with no fevers noted. She has been on Eliquis. She has been having increasing pains in her lower back and her extremities as well. - Review of Systems Constitutional: Fatigue, Weakness, No Fever Eyes: No Discharge Ears, Nose, & Throat: No Mouth Pain, No Throat Swelling, No Painful Swallowing Respiratory: Cough, Short Of Breath, Wheezing Cardiac: Edema, Palpitations, No Chest Pain Abdominal/Gastrointestinal: Nausea, No Abdominal Pain, No Vomiting, No Diarrhea Genitourinary Symptoms: No Dysuria, No Frequency Musculoskeletal: Back Pain, Joint Pain, No Joint Redness Skin: Rash, No Cellulitis Neurological: Dizziness Psychological: No Symptoms Medications & Allergies Home Medications: Home Medication List Acetaminophen 325 mg [Tylenol 325 mg] 650 mg PO Q4HPRN PRN 09/05/16 [ History Confirmed 09/05/16] Alprazolam 0.25 mg [xanAX 0.25 MG] 0.25 mg PO TIDPRN 09/05/16 [History Confirmed 09/05/16] Apixaban [Eliquis] 2.5 mg PO BID 09/05/16 [History Confirmed 09/05/16] Diphenhydramine HCl 25 mg [Benadryl 25 mg Capsule] 25 mg PO Q4H PRN PRN [History Confirmed 09/05/16] Fentanyl 50Mcg Patch [Duragesic 50MCG Patch] 50 mcg TD UD 09/05/16 [ History Confirmed 09/05/16] Furosemide 40 mg [Lasix 40 MG] 40 mg PO DAILY 09/05/16 [History Confirmed 09/05/16] Gabapentin 200 mg PO TID 09/05/16 [History Confirmed 09/05/16] Heparin Flush 500 units/5 ml [Heparin Lock Flush 100 Units/ml 5ml Syringe] 500 units IV Q12H 09/05/16 [History Confirmed 09/05/16] Hydrocodone Bit/Acetaminophen [[place] 5-325 Tablet] 1 tab PO Q6HPRN PRN 09/05/16 [History Confirmed 09/05/16] Oxycodone HCl 30 mg PO Q6HPRN PRN 09/05/16 [History Confirmed 09/05/16] Potassium Chloride [Klor-Con 8] 8 meq PO BID 09/05/16 [History Confirmed ] Prednisone 20 mg [Deltasone 20 mg] 40 mg PO DAILY 09/05/16 [History Confirmed 09/05/16] Allergies/Adverse Reactions: Allergies Allergy/AdvReac Type Severity Reaction Status Date / Time Sulfa (Sulfonamide AdvReac Mild Nausea and Verified 09/05/16 10:03 Antibiotics) Vomiting - Past Medical History Past Medical History: Yes Neurological History: TIA ENT History: Cataracts Cardiac History: Coronary Artery Disease, Hypertension Respiratory History: No Pertinent History Endocrine Medical History: No Pertinent History Musculoskelatal History: Arthritis, Degenerative Disk Disease, Fractures, Osteoarthritis, Other GI Medical History: No Pertinent History History: No Pertinent History Pyscho-Social History: No Pertinent History, Anxiety, Other Reproductive Disorders: No Pertinent History Comment: swelling ble skin scratches on lower extremities - Female History Are you now?: No - Past Surgical History Past Surgical History: Yes Neuro Surgical History: No Pertinent History Cardiac History: No Pertinent History Respiratory Surgery: No Pertinent History GI Surgical History: No Pertinent History Genitourinary Surgical Hx: No Pertinent History Musculskeletal Surgical Hx: Other Female Surgical History: No Pertinent History Other Surgical History: Right shoulder OR in 1950, h/o right shoulder dislocation. 1988, pt states she has limited ROM. BACK SURGERY 2016. 2017: right tibial plateau ORIF; Left distal femur ORIF; Left distal femur hardware removal; Left tibial plateau ORIF - Social History Smoking Status: Never smoker Exposure to second hand smoke: No Alcohol: None Drug Use: none Significant Family History: no pertinent family hx - Physical Exam Vital Signs: Vital Signs - 24 hr Temp Pulse Resp BP Pulse Ox 09/05/16 21:00 111 H 20 137/41 95 09/05/16 20:00 97.8 F 111 H 26 H 123/78 95 09/05/16 19:22 97 09/05/16 18:00 98.2 F 135 H 23 122/70 96 09/05/16 16:00 97.6 F 112 H 27 H 127/66 94 L 09/05/16 13:46 97.4 F 162 H 20 128/82 95 09/05/16 11:00 140 H 30 H 148/87 95 09/05/16 10:32 151 H 32 H 133/89 98 09/05/16 10:19 142 H 24 146/87 98 09/05/16 10:07 148 H 26 H 153/87 99 09/05/16 09:45 99 09/05/16 09:43 98.9 F 159 H 32 H 128/96 98 Oxygen-Last 24 hours O2 Percentage 3 Liters = 32% O2 Percentage 3 Liters = 32% O2 Percentage 3 Liters = 32% O2 Percentage 3 Liters = 32% O2 Percentage 3 Liters = 32% O2 Percentage 3 Liters = 32% O2 Percentage 3 Liters = 32% O2 Percentage 3 Liters = 32% O2 Percentage 3 Liters = 32% O2 Percentage 3 Liters = 32% O2 Percentage 3 Liters = 32% O2 Percentage 3 Liters = 32% General Appearance: no apparent distress, alert Neurologic Exam: alert, oriented x 3, cooperative, normal mood/affect, nml cerebellar function, nml station & gait, sensation nml, No motor deficits Eye Exam: PERRL/EOMI, eyes nml inspection, pale conjunctivae Ears, Nose, Throat Exam: normal ENT inspection, TMs normal, pharynx normal, moist mucous membranes Neck Exam: normal inspection, non-tender, supple, full range of motion Respiratory Exam: crackles/rales, No respiratory distress Cardiovascular Exam: murmur, tachycardia, irregular, edema (1+ lula LE) Gastrointestinal/Abdomen Exam: soft, normal bowel sounds, No tenderness, No mass Back Exam: normal inspection, normal range of motion, No CVA tenderness, No vertebral tenderness Extremity Exam: normal inspection, normal range of motion, pelvis stable, other (PICC in place) Skin Exam: normal color, warm, dry, rash (macular papular diffuse red) Lymphatic Exam: No adenopathy Results - Labs Lab/Micro Results: Lab Results-Last 24 Hours 09/05/16 09/05/16 09/05/16 Range/Units 11:55 13:15 15:45 Lactic Acid 2.3 H (0.4-2.0) Troponin I < 0.017 < 0.017 (0.000-0.056) ng/ml 09/05/16 Range/Units 19:00 Lactic Acid (0.4-2.0) Troponin I < 0.017 (0.000-0.056) ng/ml Assessment/Plan (1) Atrial fibrillation with RVR Current Visit: Yes Status: Acute Assessment & Plan: cardizem gtt given loading dose of dig 0.5mg at 12:30 on Eliquis chronically likely the source of her increased sob and her cardiac decompensation on CXR work on rate control now check echo Code(s): I48.91 - UNSPECIFIED ATRIAL FIBRILLATION (2) Allergic reaction Current Visit: Yes Status: Acute Assessment & Plan: she had been on vanc and rocephin for 4 weeks post op and developed a rash and skin reaction starting 5 days ago and prednisone was started 09/03/16 Code(s): T78.40XA - ALLERGY, UNSPECIFIED, INITIAL ENCOUNTER (3) Hypertension Current Visit: Yes Status: Acute Code(s): I10 - ESSENTIAL (PRIMARY) HYPERTENSION (4) Multiple fracture Current Visit: Yes Status: Chronic Assessment & Plan: with orif with recent hardware infection received 4 week emperic abx tx but developed the reaction as above was placed on zosyn to cover pna but appears likely cardiac in nature for her symptoms currently monitor overnight with improvement in rate and monitor breathing status Code(s): T14.8 - OTHER INJURY OF UNSPECIFIED BODY REGION (5) Compression fracture Current Visit: Yes Status: Chronic Code(s): PTQ3367 - (6) Osteoarthritis Current Visit: Yes Status: Chronic Code(s): M19.90 - UNSPECIFIED OSTEOARTHRITIS, UNSPECIFIED SITE (7) Osteoporosis Current Visit: Yes Status: Chronic Code(s): M81.0 - AGE-RELATED OSTEOPOROSIS W/O CURRENT PATHOLOGICAL FRACTURE (8) Chronic back pain Current Visit: Yes Status: Chronic Code(s): M54.9 - DORSALGIA, UNSPECIFIED; G89.29 - OTHER CHRONIC PAIN
[2016-09-05] MEDS: DUONEB 0.5-3 MG/3 ml Neb IH PRN (22:50)
[2016-09-06] MEDS: CARDIZEM DRIP 100 MG/100 ML D5W 100 ML IV PRN ×3 (00:31→14:46)
[2016-09-06] MEDS: Zosyn 3.375GM/100 Ml D5W 3.375 GM/100 ML IVPB IV SCH ×2 (00:52→06:41)
[2016-09-06 05:45] LABS: Mean Cell Volume 89.1 fl (78-100); Mean Platelet Volume 11.8 fl (6-9.5); Platelet Count 142 K/mm3 (150-450); Red Blood Count 3.59 M/mm3 (4.1-5.4); White Blood Count 8.6 K/mm3 (4.0-10.5)
[2016-09-06 05:58] LABS: Mean Corpuscular Hemoglobin 27.2 pg (26-32)
[2016-09-06 06:20] LABS: ANION GAP 12.7 MEQ/L (5-15); Carbon Dioxide 26.5 mEq/L (21-32); Potassium 5.2 mEq/L (3.5-5.1)
[2016-09-06] MEDS ORDERED: Lasix 40 MG/4 ML IV SCH (08:00)
[2016-09-06] MEDS: ELIQUIS PO SCH ×2 (09:25→22:18)
[2016-09-06] MEDS: DELTASONE 20 MG PO SCH (09:25)
[2016-09-06] MEDS: Neurontin 100 MG PO SCH ×3 (09:25→22:17)
[2016-09-06] MEDS: xanAX 0.25 MG PO PRN ×2 (09:25→14:12)
[2016-09-06] MEDS ORDERED: Lanoxin 0.5 MG/2 ML INJECTION IV ONE (09:39)
[2016-09-06] MEDS ORDERED: Lasix 40 MG PO SCH (10:00)
[2016-09-06] MEDS ORDERED: Duragesic 50MCG Patch TD SCH (10:00)
[2016-09-06] MEDS: Duragesic 50MCG Patch TD SCH (11:06)
[2016-09-06] MEDS: Zosyn 2.25 GM 2.25 GM in Dextrose 5%/Water IV Soln. 100ML PLUS BAG 100 ML IV SCH ×3 (11:19→23:00)
[2016-09-06] MEDS ORDERED: Cordarone 150 MG/3 ML Injection*** 150 MG in D5w 100ML Mini Bag 100 ML 100 ML IV ONE (17:26)
[2016-09-06] MEDS: NEXTERONE 360 MG/200 ML BAG 360 MG/200 ML PLAST..BAG IV SCH ×2 (17:42→23:56)
--- NOTE | 2016-09-06 18:22 | PCM.NOTE ---
Date and Time: 09/06/161818 Subjective Assessment: She feels better this am but her HR is still in the 110 to 130 at times she has crakles and is short of breath with minimal exertion. Objective Exam Neurologic Exam: alert, oriented x 3, cooperative Skin Exam: warm, dry Eye Exam: pale conjunctivae, No scleral icterus Ears, Nose, Throat Exam: moist mucous membranes Neck Exam: normal inspection, non-tender, supple Respiratory Exam: crackles/rales, rhonchi Cardiovascular Exam: murmur, tachycardia, irregular, edema Gastrointestinal/Abdomen Exam: soft, normal bowel sounds, No tenderness, No distention Extremity Exam: normal inspection, pedal edema, No calf tenderness OBJECTIVE DATA Vital Signs: Vital Signs - 24 hr Temp Pulse Resp BP BP Pulse Ox 09/06/16 18:00 104 H 19 126/101 93 L 09/06/16 16:00 98.1 F 100 H 30 H 116/65 93 L 09/06/16 14:46 94 H 17 114/72 09/06/16 14:44 110 H 16 114/72 94 L 09/06/16 14:00 111 H 24 114/72 96 09/06/16 12:08 127 H 32 H 98 09/06/16 12:00 97.5 F 112 H 20 129/84 86 L 09/06/16 10:00 112 H 29 H 106/73 96 09/06/16 08:00 97.5 F 110 H 22 108/77 95 09/06/16 06:47 115 H 20 95 09/06/16 06:00 104 H 18 105/81 94 L 09/06/16 04:00 97.3 F 115 H 20 118/67 95 09/06/16 03:00 95 H 20 113/81 97 09/06/16 02:00 103 H 125/78 09/06/16 01:00 99 H 22 107/89 94 L 09/06/16 00:00 97.4 F 104 H 24 102/71 95 09/05/16 23:00 98 H 28 H 129/76 95 09/05/16 22:48 109 H 20 96 09/05/16 22:00 117 H 25 H 129/95 95 09/05/16 21:00 111 H 20 137/41 95 09/05/16 20:00 97.8 F 111 H 26 H 123/78 95 09/05/16 19:22 97 Oxygen-Last 24 hours O2 Percentage 2 Liters = 28% O2 Percentage 2 Liters = 28% O2 Percentage 2 Liters = 28% O2 Percentage 4 Liters = 36% O2 Percentage 4 Liters = 36% O2 Percentage 4 Liters = 36% O2 Percentage 2 Liters = 28% O2 Percentage 2 Liters = 28% O2 Percentage 3 Liters = 32% O2 Percentage 3 Liters = 32% O2 Percentage 3 Liters = 32% O2 Percentage 3 Liters = 32% O2 Percentage 3 Liters = 32% O2 Percentage 3 Liters = 32% O2 Percentage 3 Liters = 32% O2 Percentage 3 Liters = 32% O2 Percentage 3 Liters = 32% Pain Assessment - Last Documented Pain Intensity 0 Pain Scale Used 0-10 Pain Scale Intake and Output: Intake & Output 09/04/16 09/05/16 09/06/16 09/07/16 11:59 11:59 11:59 11:59 Intake Total 2065 652 Output Total 2600 700 Balance -535 -48 Weight 56.291 kg Lab Results: Lab Results-Last 24 Hours 09/05/16 09/05/16 09/06/16 Range/Units 19:00 22:12 05:30 WBC 8.6 (4.0-10.5) K/mm3 RBC 3.59 L (4.1-5.4) M/mm3 Hgb 9.8 L (12.0-16.0) gm/dl Hct 32.0 L (35-47) % MCV 89.1 (78-100) fl MCH 27.2 (26-32) pg MCHC 30.6 L (32-36) g/dl RDW 21.0 H (11.5-14.0) % Plt Count 142 L (150-450) K/mm3 MPV 11.8 H (6-9.5) fl Sodium (136-145) mEq/L Potassium (3.5-5.1) mEq/L Chloride (98-107) mEq/L Carbon Dioxide (21-32) mEq/L Anion Gap (5-15) MEQ/L BUN (9-20) mg/dL Creatinine (0.55-1.30) mg/dl Estimated GFR ML/MIN Glucose (70-110) MG/DL Calcium (8.5-10.1) mg/dL Troponin I < 0.017 < 0.017 (0.000-0.056) ng/ml 09/06/16 Range/Units 05:30 WBC (4.0-10.5) K/mm3 RBC (4.1-5.4) M/mm3 Hgb (12.0-16.0) gm/dl Hct (35-47) % MCV (78-100) fl MCH (26-32) pg MCHC (32-36) g/dl RDW (11.5-14.0) % Plt Count (150-450) K/mm3 MPV (6-9.5) fl Sodium 138 (136-145) mEq/L Potassium 5.2 H (3.5-5.1) mEq/L Chloride 104 (98-107) mEq/L Carbon Dioxide 26.5 (21-32) mEq/L Anion Gap 12.7 (5-15) MEQ/L BUN 29 H (9-20) mg/dL Creatinine 1.34 H (0.55-1.30) mg/dl Estimated GFR 40 ML/MIN Glucose 127 H (70-110) MG/DL Calcium 9.6 (8.5-10.1) mg/dL Troponin I (0.000-0.056) ng/ml Radiology Exams: Radiology Procedures Category Date Time Status ECHO W/2D AND DOPPLER [US] Routine Exams 09/06/16 07:54 Taken Multi-Disciplinary Progress Notes: Multi-Disciplinary Progress Notes 09/05/16 22:44 Respiratory Note by Gabbie Diego NURSE CALLED WANTED ME TO CHECK ON PT. NURSE STATES PT IS HAS LABORED BREATHING AND LUNGS SOUND BAD. SATS ARE 98% ON 3L, RR 20, HR 109, LUNG ARE CLEAR AND DECREASED AFTER I HAD THE PT COUGH. PT STATES SHE IS A LITTLE SOB. WILL ADD PRN BREATHING MEDS. Initialized on 09/05/16 22:44 - END OF NOTE Assessment/Plan (1) Atrial fibrillation with RVR Current Visit: Yes Status: Acute Assessment & Plan: cardizem at max bp low normal dig given yesterday repeated this am with response to low 100 to 120 range now will try amiodarone gtt now and monitor for response continue eliquis. echo pending given additional 40 mg of Iv lasix this am with good output of about 2L but still with sob with minimal exertion just eating. Code(s): I48.91 - UNSPECIFIED ATRIAL FIBRILLATION (2) Allergic reaction Current Visit: Yes Status: Acute Code(s): T78.40XA - ALLERGY, UNSPECIFIED, INITIAL ENCOUNTER (3) Hypertension Current Visit: Yes Status: Acute Code(s): I10 - ESSENTIAL (PRIMARY) HYPERTENSION (4) Multiple fracture Current Visit: Yes Status: Chronic Code(s): T14.8 - OTHER INJURY OF UNSPECIFIED BODY REGION (5) Compression fracture Current Visit: Yes Status: Chronic Code(s): [id number] - (6) Osteoarthritis Current Visit: Yes Status: Chronic Code(s): M19.90 - UNSPECIFIED OSTEOARTHRITIS, UNSPECIFIED SITE (7) Osteoporosis Current Visit: Yes Status: Chronic Code(s): M81.0 - AGE-RELATED OSTEOPOROSIS W/O CURRENT PATHOLOGICAL FRACTURE (8) Chronic back pain Current Visit: Yes Status: Chronic Code(s): M54.9 - DORSALGIA, UNSPECIFIED; G89.29 - OTHER CHRONIC PAIN
[2016-09-06] MEDS: DUONEB 0.5-3 MG/3 ml Neb IH PRN (20:36)
[2016-09-07] MEDS: Zosyn 2.25 GM 2.25 GM in Dextrose 5%/Water IV Soln. 100ML PLUS BAG 100 ML IV SCH ×2 (05:27→12:42)
[2016-09-07 05:47] LABS: Mean Cell Volume 89.7 fl (78-100); Mean Platelet Volume 11.3 fl (6-9.5); Platelet Count 152 K/mm3 (150-450); Red Blood Count 3.31 M/mm3 (4.1-5.4); Red Cell Distribution Width 20.3 % (11.5-14.0); White Blood Count 7.4 K/mm3 (4.0-10.5)
[2016-09-07 06:14] LABS: Mean Corpuscular Hemoglobin 27.1 pg (26-32)
[2016-09-07 06:28] LABS: ANION GAP 12.5 MEQ/L (5-15); Carbon Dioxide 28.8 mEq/L (21-32); MAGNESIUM 2.1 mg/dL (1.8-2.4); Potassium 4.8 mEq/L (3.5-5.1)
[2016-09-07] MEDS: DUONEB 0.5-3 MG/3 ml Neb IH PRN ×2 (08:55→18:56)
--- NOTE | 2016-09-07 08:59 | XRAY ---
Indication: Short of breath. Comparison: September 05, 2016. Portable chest again demonstrates cardiomegaly, vascular congestion, and minimally increasing bibasilar effusions/atelectasis again favoring CHF.
[2016-09-07] MEDS: Neurontin 100 MG PO SCH ×3 (09:24→21:34)
[2016-09-07] MEDS: DELTASONE 20 MG PO SCH (09:24)
[2016-09-07] MEDS: ELIQUIS PO SCH ×2 (09:25→21:35)
[2016-09-07] MEDS ORDERED: Lasix 20 MG/2 ML IV SCH (10:00)
[2016-09-07] MEDS ORDERED: Lopressor 25MG Tab PO SCH (10:00)
[2016-09-07] MEDS: NEXTERONE 360 MG/200 ML BAG 360 MG/200 ML PLAST..BAG IV SCH ×2 (11:22→12:41)
--- NOTE | 2016-09-07 14:11 | PCM.NOTE ---
Date and Time: 09/07/161406 Subjective Assessment: a little better hr control on the amiodarone still in the 90 to 120 range and still very short of breath with any activity she has good output she has no other complaints other then the profound shortness of breath. Objective Exam General Appearance: mild distress, other (dyspneic with eating) Neurologic Exam: alert, oriented x 3, cooperative Skin Exam: normal color, warm, dry, No rash Eye Exam: No scleral icterus Ears, Nose, Throat Exam: moist mucous membranes Neck Exam: non-tender, supple Respiratory Exam: crackles/rales Cardiovascular Exam: murmur, tachycardia, irregular, edema Extremity Exam: pedal edema, No calf tenderness OBJECTIVE DATA Vital Signs: Vital Signs - 24 hr Temp Pulse Resp BP BP BP Pulse Ox 09/07/16 12:00 97.9 F 92 H 16 118/76 97 09/07/16 10:00 133 H 11 L 118/82 96 09/07/16 08:57 114 H 24 96 09/07/16 08:00 108 H 23 98/71 99 09/07/16 06:00 98.1 F 101 H 18 124/70 98 09/07/16 04:00 92 H 18 102/72 98 09/07/16 03:00 104 H 20 124/63 98 09/07/16 02:00 96 H 18 110/74 97 09/07/16 01:00 101 H 18 110/62 96 09/07/16 00:00 99 H 18 121/82 97 09/06/16 23:00 86 18 93/49 96 09/06/16 22:43 92 H 109/73 09/06/16 22:00 120 H 25 H 89/64 96 09/06/16 21:00 112 H 116/67 09/06/16 20:36 112 H 18 96 09/06/16 20:00 98.4 F 98 H 27 H 133/84 93 L 09/06/16 18:00 104 H 19 126/101 93 L 09/06/16 16:00 98.1 F 100 H 30 H 116/65 93 L 09/06/16 14:46 94 H 17 114/72 09/06/16 14:44 110 H 16 114/72 94 L Oxygen-Last 24 hours O2 Percentage 4 Liters = 36% O2 Percentage 4 Liters = 36% O2 Percentage 4 Liters = 36% O2 Percentage 4 Liters = 36% O2 Percentage 4 Liters = 36% O2 Percentage 4 Liters = 36% O2 Percentage 4 Liters = 36% O2 Percentage 4 Liters = 36% O2 Percentage 4 Liters = 36% O2 Percentage 4 Liters = 36% O2 Percentage 2 Liters = 28% O2 Percentage 2 Liters = 28% O2 Percentage 2 Liters = 28% O2 Percentage 2 Liters = 28% Pain Assessment - Last Documented Pain Intensity 0 Pain Scale Used 0-10 Pain Scale Intake and Output: Intake & Output 09/05/16 09/06/16 09/07/16 09/08/16 11:59 11:59 11:59 11:59 Intake Total 2065 1533 400 Output Total 2600 1100 Balance -535 433 400 Weight 56.291 kg 58.287 kg Lab Results: Lab Results-Last 24 Hours 09/07/16 09/07/16 Range/Units 05:30 05:30 WBC 7.4 (4.0-10.5) K/mm3 RBC 3.31 L (4.1-5.4) M/mm3 Hgb 9.0 L (12.0-16.0) gm/dl Hct 29.7 L (35-47) % MCV 89.7 (78-100) fl MCH 27.1 (26-32) pg MCHC 30.3 L (32-36) g/dl RDW 20.3 H (11.5-14.0) % Plt Count 152 (150-450) K/mm3 MPV 11.3 H (6-9.5) fl Sodium 138 (136-145) mEq/L Potassium 4.8 (3.5-5.1) mEq/L Chloride 101 (98-107) mEq/L Carbon Dioxide 28.8 (21-32) mEq/L Anion Gap 12.5 (5-15) MEQ/L BUN 35 H (9-20) mg/dL Creatinine 1.54 H (0.55-1.30) mg/dl Estimated GFR 34 ML/MIN Glucose 134 H (70-110) MG/DL Calcium 9.3 (8.5-10.1) mg/dL Magnesium 2.1 (1.8-2.4) mg/dL NT-Pro-B Natriuret Pep 3844 H (0-450) pg/ml Radiology Exams: Radiology Procedures Category Date Time Status CHEST 1 VIEW (PORTABLE) Routine Exams 09/07/16 08:36 Completed ECHO W/2D AND DOPPLER [US] Routine Exams 09/06/16 07:54 Taken Assessment/Plan (1) Atrial fibrillation with RVR Current Visit: Yes Status: Acute Assessment & Plan: finish the loading dose of amiodarone gtt add metoprolol if bp tolerates continue diuresis and oxygen supplementation with the worsening renal function will decrease iv lasix to 20 mg daily had great response to the 40 of lasix iv yesterday continue prednisone. There does not appear to be any pneumonia will d/c the zosyn. Code(s): I48.91 - UNSPECIFIED ATRIAL FIBRILLATION (2) Allergic reaction Current Visit: Yes Status: Acute Code(s): T78.40XA - ALLERGY, UNSPECIFIED, INITIAL ENCOUNTER (3) Hypertension Current Visit: Yes Status: Acute Code(s): I10 - ESSENTIAL (PRIMARY) HYPERTENSION (4) Multiple fracture Current Visit: Yes Status: Chronic Code(s): T14.8 - OTHER INJURY OF UNSPECIFIED BODY REGION (5) Compression fracture Current Visit: Yes Status: Chronic Code(s): CYX8501 - (6) Osteoarthritis Current Visit: Yes Status: Chronic Code(s): M19.90 - UNSPECIFIED OSTEOARTHRITIS, UNSPECIFIED SITE (7) Osteoporosis Current Visit: Yes Status: Chronic Code(s): M81.0 - AGE-RELATED OSTEOPOROSIS W/O CURRENT PATHOLOGICAL FRACTURE (8) Chronic back pain Current Visit: Yes Status: Chronic Code(s): M54.9 - DORSALGIA, UNSPECIFIED; G89.29 - OTHER CHRONIC PAIN
[2016-09-07] MEDS: Senokot-S Tablet PO SCH ×2 (14:26→21:34)
[2016-09-07] MEDS ORDERED: Lopressor 50 MG ONE (19:48)
[2016-09-07] MEDS ORDERED: Lopressor 50 MG PO SCH (22:00)
[2016-09-08 06:23] LABS: ANION GAP 12.7 MEQ/L (5-15); Potassium 4.6 mEq/L (3.5-5.1)
[2016-09-08 06:58] LABS: Mean Cell Volume 90.6 fl (78-100); Mean Platelet Volume 12.8 fl (6-9.5); Platelet Count 136 K/mm3 (150-450); Red Blood Count 3.72 M/mm3 (4.1-5.4); Red Cell Distribution Width 20.7 % (11.5-14.0); White Blood Count 7.2 K/mm3 (4.0-10.5)
[2016-09-08 07:04] LABS: Mean Corpuscular Hemoglobin 27.1 pg (26-32)
[2016-09-08] MEDS: DELTASONE 20 MG PO SCH (09:47)
[2016-09-08] MEDS: Neurontin 100 MG PO SCH ×3 (09:48→22:17)
[2016-09-08] MEDS: Senokot-S Tablet PO SCH ×2 (09:48→22:17)
[2016-09-08] MEDS: Lopressor 50 MG PO SCH ×2 (09:50→22:17)
[2016-09-08] MEDS: ELIQUIS PO SCH ×2 (09:51→22:16)
[2016-09-08] MEDS ORDERED: Lasix 40 MG/4 ML IV SCH (10:00)
[2016-09-08] MEDS ORDERED: Cordarone 200 MG PO SCH (10:00)
--- NOTE | 2016-09-08 10:57 | PCM.NOTE ---
Date and Time: 09/08/16 1052 Subjective Assessment: still very tired and short of breath with any activity including sitting up or trying to eat. She is eating well. Did tolerate O2 decreae wehile at rest. Is tolerating the increased dose of metorprolol but jumps from 90's to the 130's with any activity. She otherwise deneis complaints no bowel movement today or since admission rash has resolved. Objective Exam General Appearance: mild distress, alert Neurologic Exam: oriented x 3, cooperative Skin Exam: warm, dry, No rash Ears, Nose, Throat Exam: moist mucous membranes Neck Exam: non-tender, supple Respiratory Exam: prolonged expirations, crackles/rales, wheezing Cardiovascular Exam: murmur, tachycardia, irregular, No edema Gastrointestinal/Abdomen Exam: soft, normal bowel sounds, No tenderness Extremity Exam: normal inspection, other (incisions remain healed and nontender from previous orthopaedic surgeries bilateral legs) OBJECTIVE DATA Vital Signs: Vital Signs - 24 hr Temp Pulse Resp BP Pulse Ox 09/08/16 10:00 101 H 22 148/78 99 09/08/16 08:00 97.9 F 99 H 25 H 134/73 97 09/08/16 06:33 98 09/08/16 05:41 93 H 16 94 L 09/08/16 04:00 97.6 F 106 H 22 144/99 96 09/08/16 01:54 101 H 21 121/69 95 09/08/16 00:00 93 H 24 125/71 95 09/07/16 22:00 93 H 14 122/86 96 09/07/16 20:00 97.6 F 113 H 22 96/68 94 L 09/07/16 18:56 109 H 20 98 09/07/16 18:28 97.4 F 109 H 26 H 130/82 97 09/07/16 17:00 96 09/07/16 16:00 91 H 18 127/55 98 09/07/16 14:00 87 13 107/81 95 09/07/16 12:00 97.9 F 92 H 16 118/76 97 Oxygen-Last 24 hours O2 Percentage 3 Liters = 32% O2 Percentage 3 Liters = 32% O2 Percentage 3 Liters = 32% O2 Percentage 3 Liters = 32% O2 Percentage 3 Liters = 32% O2 Percentage 3 Liters = 32% O2 Percentage 3 Liters = 32% O2 Percentage 3 Liters = 32% O2 Percentage 3 Liters = 32% O2 Percentage 3 Liters = 32% O2 Percentage 3 Liters = 32% O2 Percentage 4 Liters = 36% O2 Percentage 4 Liters = 36% Pain Assessment - Last Documented Pain Intensity 0 Pain Scale Used 0-10 Pain Scale Intake and Output: Intake & Output 09/05/16 09/06/16 09/07/16 09/08/16 11:59 11:59 11:59 11:59 Intake Total 2065 1533 1535 Output Total 2600 1100 1350 Balance -535 433 185 Weight 56.291 kg 58.287 kg 57.289 kg Lab Results: Lab Results-Last 24 Hours 09/08/16 09/08/16 Range/Units 05:15 05:15 WBC 7.2 (4.0-10.5) K/mm3 RBC 3.72 L (4.1-5.4) M/mm3 Hgb 10.1 L (12.0-16.0) gm/dl Hct 33.7 L (35-47) % MCV 90.6 (78-100) fl MCH 27.1 (26-32) pg MCHC 30.0 L (32-36) g/dl RDW 20.7 H (11.5-14.0) % Plt Count 136 L (150-450) K/mm3 MPV 12.8 H (6-9.5) fl Sodium 138 (136-145) mEq/L Potassium 4.6 (3.5-5.1) mEq/L Chloride 103 (98-107) mEq/L Carbon Dioxide 27.0 (21-32) mEq/L Anion Gap 12.7 (5-15) MEQ/L BUN 35 H (9-20) mg/dL Creatinine 1.32 H (0.55-1.30) mg/dl Estimated GFR 40 ML/MIN Glucose 101 (70-110) MG/DL Calcium 9.5 (8.5-10.1) mg/dL Radiology Exams: Radiology Procedures Category Date Time Status CHEST 1 VIEW (PORTABLE) Routine Exams 09/07/16 08:36 Completed Assessment/Plan (1) Atrial fibrillation with RVR Current Visit: Yes Status: Acute Assessment & Plan: increase metoprolol to 75 bid and againg to 100 if tolerating amiodarone loading dose completed still difficulty controlling dig did not make much difference either will continue to work on getting the pulmonary edema controlled with the lasix. Decreaed to 20 mg Iv yesterday renal function a little better today will increase back to 40 for a better response reprot on echo pending prelim shows EF of 70% it looks like. continue Eliquis. doing ok thus far off the zosyn will wean the steroid wit hthe improved rash but still has intermittent wheezing. Still reuqiring max assistance and O2 supplementation Code(s): I48.91 - UNSPECIFIED ATRIAL FIBRILLATION (2) Acute respiratory failure with hypoxemia Current Visit: Yes Status: Acute Code(s): J96.01 - ACUTE RESPIRATORY FAILURE WITH HYPOXIA (3) Allergic reaction Current Visit: Yes Status: Acute Code(s): T78.40XA - ALLERGY, UNSPECIFIED, INITIAL ENCOUNTER (4) Hypertension Current Visit: Yes Status: Acute Code(s): I10 - ESSENTIAL (PRIMARY) HYPERTENSION (5) Multiple fracture Current Visit: Yes Status: Chronic Code(s): T14.8 - OTHER INJURY OF UNSPECIFIED BODY REGION (6) Compression fracture Current Visit: Yes Status: Chronic Code(s): MGE9974 - (7) Osteoarthritis Current Visit: Yes Status: Chronic Code(s): M19.90 - UNSPECIFIED OSTEOARTHRITIS, UNSPECIFIED SITE (8) Osteoporosis Current Visit: Yes Status: Chronic Code(s): M81.0 - AGE-RELATED OSTEOPOROSIS W/O CURRENT PATHOLOGICAL FRACTURE (9) Chronic back pain Current Visit: Yes Status: Chronic Code(s): M54.9 - DORSALGIA, UNSPECIFIED; G89.29 - OTHER CHRONIC PAIN
[2016-09-08] MEDS ORDERED: DELTASONE 20 MG PO SCH (11:00)
--- NOTE | 2016-09-08 11:41 | ECHO ---
Transthoracic echocardiographic examination and color Doppler was done on 09/06/2016. INDICATION: Congestive heart failure. IMPRESSION: 1) NO REGIONAL WALL MOTION ABNORMALITY. ESTIMATED GLOBAL LEFT VENTRICULAR EJECTION FRACTION BETWEEN 50 AND 60%. 2) MILD TRICUSPID REGURGITATION. RIGHT VENTRICULAR SYSTOLIC PRESSURE OF 29 MM OF MERCURY. 3) MILD MITRAL REGURGITATION. 4) MILD PULMONIC INSUFFICIENCY. 5) LEFT ATRIAL ENLARGEMENT. 6) MILDLY DILATED RIGHT SIDE CHAMBERS. The left ventricle is visualized and demonstrated adequate motion of all the segments. Estimated global left ventricular ejection fraction between 50 and 60%. The left ventricular thickness is normal. The mitral valve is seen and this opens adequately. The leaflets are somewhat thickened. There is mild mitral regurgitation. Left atrium is enlarged. The aortic valve opens adequately. Right side chambers are mildly dilated. There is mild tricuspid regurgitation. Right ventricular systolic pressure of 29 mm of Mercury. There is also mild pulmonic insufficiency.
[2016-09-09 06:17] LABS: Mean Cell Volume 89.3 fl (78-100); Mean Platelet Volume 11.1 fl (6-9.5); Platelet Count 188 K/mm3 (150-450); Red Blood Count 3.92 M/mm3 (4.1-5.4); Red Cell Distribution Width 20.4 % (11.5-14.0); White Blood Count 8.6 K/mm3 (4.0-10.5)
[2016-09-09 06:39] LABS: Mean Corpuscular Hemoglobin 26.7 pg (26-32)
[2016-09-09 06:46] LABS: ANION GAP 10.1 MEQ/L (5-15); Carbon Dioxide 32.2 mEq/L (21-32); Potassium 4.8 mEq/L (3.5-5.1)
[2016-09-09] MEDS ORDERED: Lopressor 50 MG PO SCH (08:50)
[2016-09-09] MEDS ORDERED: Dulcolax 10 MG SUPP PR ONE (09:00)
[2016-09-09] MEDS ORDERED: Lasix 40 MG/4 ML IV SCH (09:03)
[2016-09-09] MEDS: Duragesic 50MCG Patch TD SCH (10:05)
[2016-09-09] MEDS: ELIQUIS PO SCH (10:09)
[2016-09-09] MEDS: Senokot-S Tablet PO SCH (10:15)
[2016-09-09] MEDS: Neurontin 100 MG PO SCH ×2 (10:15→14:30)
[2016-09-09 12:40] VITALS: BP 163/87; PULSE 84; O2SAT 96
--- NOTE | 2016-09-09 14:23 | PCM.DCORD ---
- Discharge Discharge Date: 09/09/16 Disposition: DC TO [facility] Condition: Fair Prescriptions: New Prednisone 20 mg [Deltasone 20 mg] 20 mg PO DAILY #0 tablet Metoprolol Tartrate 50 mg [Lopressor 50 MG] 100 mg PO BID #0 tablet Continue Alprazolam 0.25 mg [xanAX 0.25 MG] 0.25 mg PO TIDPRN Gabapentin 200 mg PO TID Fentanyl 50Mcg Patch [Duragesic 50MCG Patch] 50 mcg TD UD Apixaban [Eliquis] 2.5 mg PO BID Diphenhydramine HCl 25 mg [Benadryl 25 mg Capsule] 25 mg PO Q4H PRN PRN PRN Reason: allergic reaction Acetaminophen 325 mg [Tylenol 325 mg] 650 mg PO Q4HPRN PRN PRN Reason: pain/fever Hydrocodone Bit/Acetaminophen [[place] 5-325 Tablet] 1 tab PO Q6HPRN PRN PRN Reason: Pain Furosemide 40 mg [Lasix 40 MG] 40 mg PO DAILY Heparin Flush 500 units/5 ml [Heparin Lock Flush 100 Units/ml 5ml Syringe ] 500 units IV Q12H Discontinued Prednisone 20 mg [Deltasone 20 mg] 40 mg PO DAILY Potassium Chloride [Klor-Con 8] 8 meq PO BID Oxycodone HCl 30 mg PO Q6HPRN PRN PRN Reason: Pain Follow up with: CARMEN EDWARDS [Primary Care Provider] -
--- NOTE | 2016-09-09 19:24 | PCM.DS ---
Discharge Summary Date of Admission: 09/05/16 11:28 Date of Discharge: 09/09/16 Admitting Physician: CARMEN EDWARDS Primary Care Provider: CARMEN EDWARDS Allergies Allergies Sulfa (Sulfonamide Antibiotics) Adverse Reaction (Mild, Verified 09/05/16 10:03) Nausea and Vomiting Hospital Summary - Hospital Course Hospital Course: She presented with afib with rvr associated with severe weakness and shortness of breath as well as pulmonary edema. SHe was initially treated with cardizem gtt that improved rate from the 160's to the 130's attempt to add loading dig dose improved only slightly more to the 120 to 130's. SHe was then attempted to have amiodarone loading that improved to the 100 to 120 range but jumped to 130' s with any movement in bed or eating and still short of breath. She had metoprolol added to the amiodarone as bp improved and her heart rate improved and the metoprolol was titrated up with better control of the rate. With her bp improved and then elevated the metoprolol was increased to 100 bid on day of discharge and amiodarone stopped as could add on po cardizem if continues to have rate control problems. She was also diuresed with 40 mg of IV lasix daily with good output and slowly improving symptoms. Her Echo was done with LVEf of 50-60%. The diuresis did cause and increase in her bun/creatinine ration. She had good diuretic response. She remained profoundly weak and minimal exertion was very tiring to her. She did however get up with assistance and walk in the room on 09/09 and was discharged back to [facility] to continue to work on rehabilitation and endurance and titrating her cardiac medications. She did initially get treated with zosyn for concern of possible pneumonia but this was stopped when repeat cxr and clinically appeared to have the symptoms from fluid overload. Her allergic drug reaction from the vanc/rocephin she was getting for infected hardware as an outpatient improved with the prednisone. she had no evidence of ongoing infection her pain was well controlled with just her fentanyl patch with no need for prn medications. - Vitals & Intake/Output Vital Signs: Vital Signs Temperature 97.5 F 09/09/16 12:00 Pulse Rate 84 09/09/16 12:00 Respiratory Rate 18 09/09/16 12:00 Blood Pressure 163/87 09/09/16 12:00 O2 Sat by Pulse Oximetry 96 09/09/16 12:00 Oxygen-Last Documented O2 Percentage 3 Liters = 32% Intake & Output: Intake & Output 09/07/16 09/08/16 09/09/16 09/10/16 11:59 11:59 11:59 11:59 Intake Total 1533 1535 780 Output Total 1100 1350 2650 850 Balance 433 185 -1870 -850 Weight 58.287 kg 57.289 kg 53.977 kg - Lab Result Diagrams: 09/09/16 05:30 09/09/16 05:30 Lab Results-Last 24 Hrs: Lab Results-Last 24 Hours 09/09/16 09/09/16 09/09/16 Range/Units 05:30 05:30 05:30 WBC 8.6 (4.0-10.5) K/mm3 RBC 3.92 L (4.1-5.4) M/mm3 Hgb 10.5 L (12.0-16.0) gm/dl Hct 35.0 (35-47) % MCV 89.3 (78-100) fl MCH 26.7 (26-32) pg MCHC 30.0 L (32-36) g/dl RDW 20.4 H (11.5-14.0) % Plt Count 188 (150-450) K/mm3 MPV 11.1 H (6-9.5) fl Sodium 142 (136-145) mEq/L Potassium 4.8 (3.5-5.1) mEq/L Chloride 104 (98-107) mEq/L Carbon Dioxide 32.2 H (21-32) mEq/L Anion Gap 10.1 (5-15) MEQ/L BUN 40 H (9-20) mg/dL Creatinine 1.31 H (0.55-1.30) mg/dl Estimated GFR 41 ML/MIN Glucose 94 (70-110) MG/DL Calcium 9.8 (8.5-10.1) mg/dL NT-Pro-B Natriuret Pep 6634 H (0-450) pg/ml - Procedures and Test Procedures and Tests throughout Hospitalization: Therapy Orders & Screens 09/05/16 11:36 Oxygen NASAL CANNULA 2 lpm Comment: 09/05/16 14:48 OT Screen per Nursing Assess Comment: Protocol Order Physician Instructions: Greater than 3 points order OT Admission Screening Reason For Exam: Triggered on Admission Diagnosis: Afib with RVR; Healthcare assoc pneumonia Open Wound/Cellutlitis/Pressure Ulcers: No Acute Fx/ORIF/Change in wt bearing status: No Severe MUSCULOSKELETAL pain: No ADL Dysfunction: Yes Acute CVA w/Hemiparesis/Hemiplegia: No Decreased Functional Mobility/Strength: Yes Sprain/Strain: No Acute Post-op Mobility Dysfunction: No Total Points: 4 PT Screen per Nursing Assess ONCE Comment: Protocol Order Physician Instructions: Greater than 3 points order PT Admission Screenin Reason For Exam: Triggered on Admission Diagnosis: Afib with RVR; Healthcare assoc pneumonia Open Wound/Cellutlitis/Pressure Ulcers: No Acute Fx/ORIF/Change in wt bearing status: No Severe MUSCULOSKELETAL pain: No ADL Dysfunction: Yes Acute CVA w/Hemiparesis/Hemiplegia: No Decreased Functional Mobility/Strength: Yes Sprain/Strain: No Acute Post-op Mobility Dysfunction: No Total Points: 4 RT Screen per Nursing Assess ONCE Comment: Protocol Order Physician Instructions: Greater than 3 points order RT Admission Screen Reason For Exam: Triggered on Admission Diagnosis: Afib with RVR; Healthcare assoc pneumonia Diagnosis: Afib with RVR; Healthcare assoc pneumonia Pneumonia: Yes Home O2: Yes Asthma: No CHF: Yes Home CPAP/BIPAP: No Home Nebs/MDI: No Total Points: 11 ST Screen per Nursing Assess once Comment: Protocol Order Physician Instructions: Greater than [address] Admission Screening Reason For Exam: Triggered on Admission Diagnosis: Afib with RVR; Healthcare assoc pneumonia CVA/Dyshpagia/Aphasia: No Cognitive Deficits: No Dehydration/Nutrition Deficit: No Reflux: No Oral-Motor Difficulties: No Pneumonia: Yes Longterm Resident: Yes Total Points: 10 09/05/16 22:48 Respiratory Nebulizer UD Comment: DUONEB Q4PRN Diagnosis: shortness of breath Discharge Exam General Appearance: no apparent distress Neurologic Exam: alert, oriented x 3, cooperative, nml cerebellar function, sensation nml, No normal mood/affect (depressed), No motor deficits Skin Exam: normal color, warm, dry, pale Eye Exam: PERRL, EOMI, eyes nml inspection Ears, Nose, Throat Exam: pharynx normal, moist mucous membranes Neck Exam: normal inspection, non-tender, supple, full range of motion Respiratory Exam: normal breath sounds, crackles/rales (bibasilar), No respiratory distress Cardiovascular Exam: murmur, irregular Gastrointestinal/Abdomen Exam: soft, No tenderness, No mass Extremity Exam: normal inspection, normal range of motion, No pedal edema Back Exam: normal inspection, normal range of motion, No CVA tenderness, No vertebral tenderness Pelvic Exam: deferred Rectal Exam: deferred Final Diagnosis/Problem List - Final Discharge Diagnosis/Problem (1) Atrial fibrillation with RVR Status: Acute (2) Acute respiratory failure with hypoxemia Status: Acute (3) Allergic reaction Status: Acute (4) Hypertension Status: Acute (5) Multiple fracture Status: Chronic (6) Compression fracture Status: Chronic (7) Osteoarthritis Status: Chronic (8) Osteoporosis Status: Chronic (9) Chronic back pain Status: Chronic (10) Pulmonary edema Status: Acute - Discharge Disposition: Skilled Care @ [facility] Condition: Fair Prescriptions: New Prednisone 20 mg [Deltasone 20 mg] 20 mg PO DAILY #0 tablet Metoprolol Tartrate 50 mg [Lopressor 50 MG] 100 mg PO BID #0 tablet Continue Alprazolam 0.25 mg [xanAX 0.25 MG] 0.25 mg PO TIDPRN Gabapentin 200 mg PO TID Fentanyl 50Mcg Patch [Duragesic 50MCG Patch] 50 mcg TD UD Apixaban [Eliquis] 2.5 mg PO BID Diphenhydramine HCl 25 mg [Benadryl 25 mg Capsule] 25 mg PO Q4H PRN PRN PRN Reason: allergic reaction Acetaminophen 325 mg [Tylenol 325 mg] 650 mg PO Q4HPRN PRN PRN Reason: pain/fever Hydrocodone Bit/Acetaminophen [[place] 5-325 Tablet] 1 tab PO Q6HPRN PRN PRN Reason: Pain Furosemide 40 mg [Lasix 40 MG] 40 mg PO DAILY Heparin Flush 500 units/5 ml [Heparin Lock Flush 100 Units/ml 5ml Syringe ] 500 units IV Q12H Discontinued Prednisone 20 mg [Deltasone 20 mg] 40 mg PO DAILY Potassium Chloride [Klor-Con 8] 8 meq PO BID Oxycodone HCl 30 mg PO Q6HPRN PRN PRN Reason: Pain Instructions: Atrial Fibrillation Follow up with: CARMEN EDWARDS [Primary Care Provider] - Forms: Ambulance Transport Record, Discharge Instructions, Discharge Skin Assessment, Patient Portal Information, Transfer Record Longterm
== END 2016-09-09 15:44 | DRG 308 ==
LOC: ED 09:36 → ICU 11:28 → MED SURG 09-08 10:30
PROVIDERS: ADMIT Family Medicine; ATTEND Family Medicine
DX: I48.91 Unspecified atrial fibrillation (principal); J96.01 Acute respiratory failure with hypoxia; M84.452A Pathological fracture, left femur, initial encounter for fracture; M84.451A Pathological fracture, right femur, initial encounter for fracture; J81.1 Chronic pulmonary edema; T78.40XA Allergy, unspecified, initial encounter; I10 Essential (primary) hypertension; M48.50XD Collapsed vertebra, not elsewhere classified, site unspecified, subsequent encounter for fracture with routine healing; M19.90 Unspecified osteoarthritis, unspecified site; M81.0 Age-related osteoporosis without current pathological fracture; M54.5 Low back pain; G89.29 Other chronic pain; F45.42 Pain disorder with related psychological factors; R29.6 Repeated falls; I25.10 Atherosclerotic heart disease of native coronary artery without angina pectoris; F41.9 Anxiety disorder, unspecified; Z79.01 Long term (current) use of anticoagulants; Z79.899 Other long term (current) drug therapy
CPT/HCPCS: 36000; 36415; 51702; 71010; 80048; 80053; 81002; 82805; 83605; 83735; 83880; 84484; 85025; 85027; 87040; 87086; 93005; 93041; 93306; 94640; 94760; 96360; 96361; 96365; 96366; 96374; 99285; J0282; J1160; J1642; J1940; J2543; A9270-GY; J7506

== ENCOUNTER 2016-09-29 23:25 | Inpatient (IN) | payer MEDICARE ==
[2016-09-29] MEDS ORDERED: PROVENTIL 2.5 MG/3 ML NEB IH ONE ×2 (23:34→23:49)
[2016-09-30 00:07] LABS: BASOPHIL % 0.2 % (0.0-0.4); Granulocytes % 71.5 % (36.0-66.0); Lymphocytes % 17.7 % (24.0-44.0); Mean Cell Volume 85.7 fl (78-100); Mean Platelet Volume 13.1 fl (6-9.5); Monocytes % 10.6 % (0.0-12.0); Platelet Count 147 K/mm3 (150-450); Red Blood Count 4.46 M/mm3 (4.1-5.4); Red Cell Distribution Width 21.2 % (11.5-14.0)
[2016-09-30 00:08] LABS: Mean Corpuscular Hemoglobin 26.4 pg (26-32)
[2016-09-30 00:10] LABS: A-aADO2 506; ALLEN TEST OK? YES; ARTERIAL BLD GAS O2 SATURATION 100.1 % (95-100); ARTERIAL BLOOD GAS BASE EXCESS 0.8 (-2.0-2.0); ARTERIAL BLOOD GAS FIO2 100 %; ARTERIAL BLOOD GAS PO2 176 mmHg (75-100); ARTERIAL BLOOD GAS pH 7.55 (7.35-7.45); Lactic Acid 2.9 (0.4-2.0)
--- NOTE | 2016-09-30 00:10 | ERPHSYRPT ---
- History of Present Illness Time Seen by Provider: 09/29/16 23:33 Source: family (niece Ms Bethea = POA), EMS, [place] [facility] records ([place]) Physician History: CC: difficulty breathing Hx: 86 y/o patient from [facility]. She has hx of CHF, endocarditis, multiple fractures. She is on chronic oxygen. She has had large decline in past year. [place] called EMS for shortness of breath and respiratory distress. Worse over 2-3 hours. Niece reports some worse over few days. No fever. Some cough. Mostly dyspnea. Pt does not answer question and only moans. She wears fentanyl patch for pain. Hx of afib and is anticoagulated on eliquis. Timing/Duration: today Severity of Dyspnea-Max: severe Severity of Dyspnea-Current: moderate Allergies/Adverse Reactions: Sulfa (Sulfonamide Antibiotics) Adverse Reaction (Mild, Verified 09/05/16 10:03) Nausea and Vomiting Home Medications: Acetaminophen 325 mg [Tylenol 325 mg] 650 mg PO Q4HPRN PRN 09/05/16 [ History] Alprazolam 0.25 mg [xanAX 0.25 MG] 0.25 mg PO TIDPRN 09/05/16 [History] Apixaban [Eliquis] 2.5 mg PO BID 09/05/16 [History] Diphenhydramine HCl 25 mg [Benadryl 25 mg Capsule] 25 mg PO Q4H PRN PRN [History] Fentanyl 50Mcg Patch [Duragesic 50MCG Patch] 50 mcg TD UD 09/05/16 [ History] Furosemide 40 mg [Lasix 40 MG] 40 mg PO DAILY 09/05/16 [History] Gabapentin 200 mg PO TID 09/05/16 [History] Heparin Flush 500 units/5 ml [Heparin Lock Flush 100 Units/ml 5ml Syringe] 500 units IV Q12H 09/05/16 [History] Hydrocodone Bit/Acetaminophen [[place] 5-325 Tablet] 1 tab PO Q6HPRN PRN 09/05/16 [History] Hx Tetanus, Diphtheria Vaccination/Date Given: Yes (up to date) Hx Influenza Vaccination/Date Given: Yes Hx Pneumococcal Vaccination/Date Given: Yes - Review of Systems Constitutional: Malaise, No Fever, No Chills Respiratory: Dyspnea Abdominal/Gastrointestinal: No Vomiting All Other Systems: Unable due to condition - Past Medical History Pertinent Past Medical History: Yes Neurological History: TIA ENT History: Cataracts Cardiac History: Coronary Artery Disease, Hypertension Respiratory History: No Pertinent History Endocrine Medical History: No Pertinent History Musculoskeletal History: Arthritis, Degenerative Disk Disease, Fractures, Osteoarthritis, Other GI Medical History: No Pertinent History History: No Pertinent History Psycho-Social History: No Pertinent History, Anxiety, Other Female Reproductive Disorders: No Pertinent History Other Medical History: Edema. Rib fractures and orthopedic fractures - Past Surgical History Past Surgical History: Yes Neuro Surgical History: No Pertinent History Cardiac: No Pertinent History Respiratory: No Pertinent History Gastrointestinal: No Pertinent History Genitourinary: No Pertinent History Musculoskeletal: Other Female Surgical History: No Pertinent History Other Surgical History: Right shoulder OR in 1949, h/o right shoulder dislocation. 1988, pt states she has limited ROM. BACK SURGERY 2016. 2017: right tibial plateau ORIF; Left distal femur ORIF; Left distal femur hardware removal; Left tibial plateau ORIF - Social History Smoking Status: Never smoker Exposure to second hand smoke: No Alcohol Use: None Drug Use: none Patient Lives Alone: No (MMM [place]) Significant Family History: no pertinent family hx - Female History Hx Now: No - Nursing Vital Signs Nursing Vital Signs: Initial Vital Signs Temperature 99.4 F Temperature Source Rectal Pulse Rate 120 Respiratory Rate 20 Blood Pressure [] 130/70 Pain Intensity 0 - Physical Exam General Appearance: alert, other (moans) Eye Exam: PERRL/EOMI Neck Exam: JVD Respiratory Exam: diminished breath sounds, rhonchi Cardiovascular/Chest Exam: edema (marked in legs), irregular, decreased pulses Abdominal/Gastrointestinal Exam: soft, No tenderness, No distention Extremity Exam: pedal edema Neurologic Exam: alert Skin Exam: other (mottled, cold extremities with diminished peripheral pulses) SpO2 Interpretation: ABG ordered Comments: pulse ox unable to read. Right radial ABG obtained with sono guidance. Pressure held 5 minutes post stick. - Course Nursing assessment & vital signs reviewed: Yes EKG Interpreted by Me: RATE (120), A-fib, NORMAL AXIS, Non-specific ST Changes - Radiology Exams cxr X-ray Interpretation: Reviewed by me (low lungs volumes, right rib fx likely old , bilateral pleural effusions) Ordered Tests: Active Orders 24 hr Category Date Time Status [place] Worker STAT Care 09/29/16 23:34 Active Catheter-[place] STAT Care 09/29/16 23:34 Active EKG-ER Only STAT Care 09/29/16 23:34 Active IV Insertion STAT Care 09/29/16 23:34 Active Pulse Oximetry (ED) STAT Care 09/29/16 23:34 Active Rectal Temperature STAT Care 09/29/16 23:34 Active CHEST 1 VIEW (PORTABLE) Stat Exams 09/29/16 23:34 Taken ARTERIAL BLOOD GASES Stat Lab 09/29/16 23:34 Results BLOOD CULTURE Stat Lab 09/29/16 00:45 Received CBC W DIFF Stat Lab 09/29/16 00:45 Completed CMP Stat Lab 09/29/16 00:45 Completed LIPASE Stat Lab 09/30/16 00:49 Completed Lactic Acid Stat Lab 09/29/16 23:34 Results MAGNESIUM Stat Lab 09/29/16 00:45 Completed NT PRO BNP Stat Lab 09/29/16 00:45 Completed PROTIME WITH INR Stat Lab 09/29/16 00:45 Completed PTT Stat Lab 09/29/16 00:45 Completed TROPONIN Stat Lab 09/29/16 00:45 Completed UA W/ MICROSCOPIC Stat Lab 09/30/16 00:20 Completed BiPap/CPAP Assessment STAT RT 09/29/16 23:34 Active Respiratory Nebulizer STAT RT 09/29/16 23:35 Active Medication Summary Discontinued Medications Generic Name Dose Route Start Last Admin Trade Name Freq PRN Reason Stop Dose Admin Albuterol Sulfate 2.5 mg 09/29/16 23:34 Proventil 2.5 Mg/3 Ml Neb IH 09/29/16 23:35 STAT ONE Albuterol Sulfate Confirm 09/29/16 23:49 Proventil 2.5 Mg/3 Ml Neb Administered 09/29/16 23:50 Dose 2.5 mg IH .STK-MED ONE Furosemide 20 mg 09/30/16 00:20 09/30/16 00:28 Lasix 40 Mg/4 Ml IV 09/30/16 00:21 20 mg STAT ONE Administration Furosemide Confirm 09/30/16 00:27 Lasix 40 Mg/4 Ml Administered 09/30/16 00:28 Dose 40 mg .ROUTE .STK-MED ONE Hydrocortisone Sodium Succinate 100 mg 09/30/16 00:19 09/30/16 00:52 Solu-Cortef 100mg IV 09/30/16 00:20 Not Given STAT ONE Hydrocortisone Sodium Succinate Confirm 09/30/16 00:27 Solu-Cortef 250mg Administered 09/30/16 00:28 Dose 250 mg .ROUTE .STK-MED ONE Hydrocortisone Sodium Succinate 100 mg 09/30/16 00:31 09/30/16 00:33 Solu-Cortef 250mg IV 09/30/16 00:32 100 mg STAT ONE Administration Cefepime HCl 1 g/ Sodium 100 mls @ 200 mls/hr 09/30/16 00:19 09/30/16 00:48 Chloride IV 09/30/16 00:48 200 mls/hr STAT STA Administration Lab/Rad Data: Laboratory Result Diagrams 09/29/16 00:45 09/29/16 00:45 Laboratory Results 09/30/16 09/30/16 09/30/16 Range/Units 00:49 00:20 00:09 WBC (4.0-10.5) K/mm3 RBC (4.1-5.4) M/mm3 Hgb (12.0-16.0) gm/dl Hct (35-47) % MCV (78-100) fl MCH (26-32) pg MCHC (32-36) g/dl RDW (11.5-14.0) % Plt Count (150-450) K/mm3 MPV (6-9.5) fl Gran % (36.0-66.0) % Lymphocytes % (24.0-44.0) % Monocytes % (0.0-12.0) % Eosinophils % (0.00-5.0) % Basophils % (0.0-0.4) % Basophils # (0-0.4) INR (0.8-3.0) APTT (25.3-37.0) SECONDS Puncture Site RIGHT RADIAL pCO2 25 L (35-45) mmHg pO2 176 H* (75-100) mmHg Base Excess 0.8 (-2.0-2.0) O2 Saturation 95.5 (94-100) g/dF ABG pH 7.55 H* (7.35-7.45) ABG HCO3 21.9 L (22-28) ABG O2 Sat (Measured) 100.1 H (95-100) % Manjinder Test YES A-a Gradient 506 a/A Ratio 0.26 Hemoglobin 12.6 Carboxyhemoglobin 3.6 (0.0-6.9) % THgb Methemoglobin 1.0 L (1.4-1.5) % Temperature 37.0 C POC O2 Flow Rate 100 % Sodium (136-145) mEq/L Potassium 5.2 H (3.5-5.1) mEq/L Chloride (98-107) mEq/L Carbon Dioxide (21-32) mEq/L Anion Gap (5-15) MEQ/L BUN (9-20) mg/dL Creatinine (0.55-1.30) mg/dl Estimated GFR ML/MIN Glucose (70-110) MG/DL Lactic Acid 2.9 H (0.4-2.0) Calcium (8.5-10.1) mg/dL Magnesium (1.8-2.4) mg/dL Total Bilirubin (0.2-1.0) mg/dL AST (15-37) U/L ALT (12-78) U/L Alkaline Phosphatase (46-116) U/L Troponin I (0.000-0.056) ng/ml NT-Pro-B Natriuret Pep (0-450) pg/ml Serum Total Protein (6.4-8.2) gm/dL Albumin (3.4-5.0) g/dL Lipase 181 (73-393) U/L Ur Collection Type CATH Urine Color YELLOW (YELLOW) Urine Appearance CLEAR (CLEAR) Urine pH 5.0 (5-6) Ur Specific [place] 1.020 (1.005-1.025) Urine Protein NEGATIVE (Negative) Urine Ketones NEGATIVE (NEGATIVE) Urine Blood NEGATIVE (0-5) Mark/ul Urine Nitrite NEGATIVE (NEGATIVE) Urine Bilirubin NEGATIVE (NEGATIVE) Urine Urobilinogen NORMAL (0-1) mg/dL Ur Leukocyte Esterase TRACE (NEGATIVE) Urine Microscopic WBC 2-5 (0-5) /HPF Ur Epithelial Cells RARE (FEW) /HPF Urine Bacteria RARE (NEGATIVE) /HPF Hyaline Casts 0-2 (0-2) /LPF Urine Yeast MODERATE (NEGATIVE) /HPF Urine Glucose NEGATIVE (NEGATIVE) mg/dL Specimen Received 09-30-16 0025 09/29/16 09/29/16 09/29/16 Range/Units 00:45 00:45 00:45 WBC 10.0 (4.0-10.5) K/mm3 RBC 4.46 (4.1-5.4) M/mm3 Hgb 11.8 L (12.0-16.0) gm/dl Hct 38.2 (35-47) % MCV 85.7 (78-100) fl MCH 26.4 (26-32) pg MCHC 30.9 L (32-36) g/dl RDW 21.2 H (11.5-14.0) % Plt Count 147 L (150-450) K/mm3 MPV 13.1 H (6-9.5) fl Gran % 71.5 H (36.0-66.0) % Lymphocytes % 17.7 L (24.0-44.0) % Monocytes % 10.6 (0.0-12.0) % Eosinophils % 0.0 (0.00-5.0) % Basophils % 0.2 (0.0-0.4) % Basophils # 0.02 (0-0.4) INR 1.91 (0.8-3.0) APTT 30.2 (25.3-37.0) SECONDS Puncture Site pCO2 (35-45) mmHg pO2 (75-100) mmHg Base Excess (-2.0-2.0) O2 Saturation (94-100) g/dF ABG pH (7.35-7.45) ABG HCO3 (22-28) ABG O2 Sat (Measured) (95-100) % Manjinder Test A-a Gradient a/A Ratio Hemoglobin Carboxyhemoglobin (0.0-6.9) % THgb Methemoglobin (1.4-1.5) % Temperature C POC O2 Flow Rate % Sodium 136 (136-145) mEq/L Potassium 4.7 (3.5-5.1) mEq/L Chloride 100 (98-107) mEq/L Carbon Dioxide 27.2 (21-32) mEq/L Anion Gap 13.1 (5-15) MEQ/L BUN 46 H (9-20) mg/dL Creatinine 2.03 H (0.55-1.30) mg/dl Estimated GFR 25 ML/MIN Glucose 122 H (70-110) MG/DL Lactic Acid (0.4-2.0) Calcium 10.0 (8.5-10.1) mg/dL Magnesium 2.4 (1.8-2.4) mg/dL Total Bilirubin 0.70 (0.2-1.0) mg/dL AST 989 H (15-37) U/L ALT 765 H (12-78) U/L Alkaline Phosphatase 111 (46-116) U/L Troponin I 0.019 (0.000-0.056) ng/ml NT-Pro-B Natriuret Pep 8494 H (0-450) pg/ml Serum Total Protein 7.3 (6.4-8.2) gm/dL Albumin 3.9 (3.4-5.0) g/dL Lipase (73-393) U/L Ur Collection Type Urine Color (YELLOW) Urine Appearance (CLEAR) Urine pH (5-6) Ur Specific [place] (1.005-1.025) Urine Protein (Negative) Urine Ketones (NEGATIVE) Urine Blood (0-5) Mark/ul Urine Nitrite (NEGATIVE) Urine Bilirubin (NEGATIVE) Urine Urobilinogen (0-1) mg/dL Ur Leukocyte Esterase (NEGATIVE) Urine Microscopic WBC (0-5) /HPF Ur Epithelial Cells (FEW) /HPF Urine Bacteria (NEGATIVE) /HPF Hyaline Casts (0-2) /LPF Urine Yeast (NEGATIVE) /HPF Urine Glucose (NEGATIVE) mg/dL Specimen Received - Progress Progress Note: 09/30/16 00:10 Niece is POA and present at bedside. Pt has POST form. Niece confirms SCO, no CPR or intubation. Pt was placed on bipap in effort to make respirations more comfortable. 09/30/16 00:57 She is breathing more comfortably with bipap. Creat a little higher than usual. Transaminases are elevated markedly. Niece wants SCO and not much agressive interventions. Cultures sent. Cefepime given to cover for healthcare associated pneumonia. Called Dr Billingsley who will admit. Discussed with : Scarlett Will see patient in: hospital (full admit) Counseled pt/family regarding: lab results, diagnosis, need for follow-up, rad results - Departure Time of Disposition: 00:58 Departure Disposition: In-patient Admission Clinical Impression: Acute respiratory distress, Healthcare-associated pneumonia, Elevated transaminase measurement Condition: Fair Critical Care Time: Yes Critical Care Time(excluding separately billable procedures): 30-74 minutes
[2016-09-30] MEDS ORDERED: MAXIPIME 1 GM** 1 G in Sodium Chloride 0.9% 100 ML IVPB 100 ML IV STA (00:19)
[2016-09-30] MEDS ORDERED: solu-CORTEF 100MG IV ONE (00:19)
[2016-09-30] MEDS ORDERED: Lasix 40 MG/4 ML IV ONE (00:20)
[2016-09-30 00:27] LABS: ADD URINE CULTURE? NO (NO); Bilirubin NEGATIVE (NEGATIVE); Blood NEGATIVE Ery/ul (0-5); COMPLETE URINE MICROSCOPIC? YES; Collection Type CATH; Glucose NEGATIVE (NEGATIVE); Leukocyte Esterase TRACE (NEGATIVE)
[2016-09-30] MEDS ORDERED: solu-CORTEF 250MG ONE (00:27)
[2016-09-30] MEDS ORDERED: Lasix 40 MG/4 ML ONE (00:27)
[2016-09-30] MEDS ORDERED: solu-CORTEF 250MG IV ONE (00:31)
[2016-09-30 00:34] LABS: ALBUMIN 3.9 g/dL (3.4-5.0); ANION GAP 13.1 MEQ/L (5-15); BILIRUBIN,TOTAL 0.7 mg/dL (0.2-1.0); Carbon Dioxide 27.2 mEq/L (21-32); MAGNESIUM 2.4 mg/dL (1.8-2.4); Potassium 4.7 mEq/L (3.5-5.1); TROPONIN 0.019 ng/ml (0.000-0.056); Total Protein 7.3 gm/dL (6.4-8.2)
[2016-09-30 00:35] LABS: Bacteria RARE /HPF (NEGATIVE); Epithelial Cells RARE /HPF (FEW); Hyaline Casts 0-2 /LPF (0-2); Yeast MODERATE /HPF (NEGATIVE)
[2016-09-30 00:36] LABS: INR 1.91 (0.8-3.0); PROTIME 21.7 SECONDS (9.95-12.35); PTT 30.2 SECONDS (25.3-37.0)
[2016-09-30] MEDS ORDERED: Sodium Chloride 0.9% 1000 ML 1,000 ML IV SCH (02:54)
[2016-09-30] MEDS ORDERED: SUBLIMAZE 100 MCG/2 ML IV PRN (02:54)
[2016-09-30] MEDS ORDERED: DUONEB 0.5-3 MG/3 ml Neb IH PRN (02:54)
[2016-09-30] MEDS ORDERED: Duragesic 50MCG Patch TD SCH ×2 (02:54→10:00)
[2016-09-30] MEDS ORDERED: LOPRESSOR 5 MG/5 ML INJECTION IV ONE (05:30)
[2016-09-30 05:44] LABS: ANION GAP 12.8 MEQ/L (5-15); Carbon Dioxide 28.6 mEq/L (21-32); Mean Cell Volume 87.1 fl (78-100); Platelet Count 121 K/mm3 (150-450); Potassium 4.3 mEq/L (3.5-5.1); Red Blood Count 4.11 M/mm3 (4.1-5.4); White Blood Count 8.2 K/mm3 (4.0-10.5)
[2016-09-30 06:32] LABS: Mean Corpuscular Hemoglobin 26.7 pg (26-32)
--- NOTE | 2016-09-30 07:59 | PCM.HP ---
History of Present Illness - Chief Complaint Chief Complaint: Shortness of Breath Date: 09/30/16 History of Present Illness: is a 86 year old female. Who has had progressively functional decline over the last year and in the longterm. She was hospitalized a few weeks ago for afib with rvr. She has expressed interest to her POA her 2 nieces who are her primary care givers that she does not want to have any interventions given her functional status to prolong her life. She does not want iv medications or hospitalization for these problems. She had been fatigued and less responsive the day of presentation at [facility] and then was found to have hypoxia in the low 80's. She was sent to the ED where she was found to be in afib with rvr again but refused iv treatments fro this she did agree to antibiotics at first if needed and oxygen as needed. THis am she is fully oriented and conversing well and states that with all the pain she has been through and her limited functional abilities now she does not want to continue on with aggressive treatments and requests to be discharged back to [facility] and kept comfortable. - Review of Systems Constitutional: No Fever, No Chills Eyes: No Symptoms Ears, Nose, & Throat: No Symptoms Respiratory: Short Of Breath, No Cough Cardiac: Edema, Palpitations, No Chest Pain, No Syncope Abdominal/Gastrointestinal: No Abdominal Pain, No Nausea, No Vomiting, No Diarrhea Genitourinary Symptoms: No Dysuria Musculoskeletal: Back Pain, Joint Pain, No Neck Pain Skin: No Rash Neurological: No Dizziness, No Focal Weakness, No Sensory Changes Psychological: No Symptoms Endocrine: No Symptoms Hematologic/Lymphatic: No Symptoms Immunological/Allergic: No Symptoms Medications & Allergies Home Medications: Home Medication List Fentanyl 50Mcg Patch [Duragesic 50MCG Patch] 50 mcg TD 2XW 09/05/16 [ History Confirmed 09/30/16] Lorazepam 20 mg/10 ml Mdv [Ativan 20 MG/10 ML MDV] 1 mg SL Q2H PRN #10 ml 09/30/16 [Rx] Morphine Sulfate [Roxanol] 0.5 ml PO Q2H PRN #10 ml 09/30/16 [Rx] Allergies/Adverse Reactions: Allergies Allergy/AdvReac Type Severity Reaction Status Date / Time Sulfa (Sulfonamide AdvReac Mild Nausea and Verified 09/30/16 01:05 Antibiotics) Vomiting - Past Medical History Past Medical History: Yes Neurological History: TIA ENT History: Cataracts Cardiac History: Coronary Artery Disease, Hypertension Respiratory History: No Pertinent History Endocrine Medical History: No Pertinent History Musculoskelatal History: Arthritis, Degenerative Disk Disease, Fractures, Osteoarthritis GI Medical History: No Pertinent History History: No Pertinent History Pyscho-Social History: Anxiety Reproductive Disorders: No Pertinent History Comment: Edema. Rib fractures and orthopedic fractures - Female History Hx Last Menstrual Period: na Are you now?: No - Past Surgical History Past Surgical History: Yes Neuro Surgical History: No Pertinent History Cardiac History: No Pertinent History Respiratory Surgery: No Pertinent History GI Surgical History: No Pertinent History Genitourinary Surgical Hx: No Pertinent History Musculskeletal Surgical Hx: Other Female Surgical History: No Pertinent History Other Surgical History: right shoulder 1950, back 2015, right tibial plateau ORIF and left distal femur ORIF and left tibial plateau ORIF 2016 - Social History Smoking Status: Never smoker Exposure to second hand smoke: No Alcohol: None Drug Use: none Significant Family History: no pertinent family hx - Physical Exam Vital Signs: Vital Signs - 24 hr Temp Pulse Resp BP Pulse Ox 09/30/16 07:00 120 H 15 100 09/30/16 06:21 131 H 12 92/62 100 09/30/16 05:36 145 H 123/76 09/30/16 05:27 97.8 F 127 H 17 121/89 100 09/30/16 04:56 128 H 14 122/79 100 09/30/16 04:28 117 H 15 98 09/30/16 03:48 117 H 15 98 09/30/16 03:00 113 H 8 L 97/83 100 09/30/16 02:00 141 H 8 L 115/60 100 09/30/16 01:30 97.7 F 127 H 16 137/97 97 Oxygen-Last 24 hours O2 Percentage 60% O2 Percentage 60% O2 Percentage 60% General Appearance: no apparent distress, alert Neurologic Exam: alert, oriented x 3, cooperative, normal mood/affect, sensation nml, No motor deficits Eye Exam: PERRL/EOMI, eyes nml inspection Ears, Nose, Throat Exam: normal ENT inspection, TMs normal, pharynx normal, moist mucous membranes Neck Exam: normal inspection, non-tender, supple, full range of motion Respiratory Exam: normal breath sounds, respiratory distress, accessory muscle use, crackles/rales Cardiovascular Exam: normal peripheral pulses, murmur, tachycardia, edema Gastrointestinal/Abdomen Exam: soft, normal bowel sounds, No tenderness, No mass Back Exam: normal inspection, normal range of motion, No CVA tenderness, No vertebral tenderness Extremity Exam: normal inspection, normal range of motion, pelvis stable Skin Exam: normal color, warm, dry, No rash Lymphatic Exam: No adenopathy Results - Labs Lab/Micro Results: Lab Results-Last 24 Hours 09/30/16 09/30/16 09/30/16 Range/Units 02:09 05:07 05:07 WBC 8.2 (4.0-10.5) K/mm3 RBC 4.11 (4.1-5.4) M/mm3 Hgb 11.0 L (12.0-16.0) gm/dl Hct 35.8 (35-47) % MCV 87.1 (78-100) fl MCH 26.7 (26-32) pg MCHC 30.7 L (32-36) g/dl RDW 21.0 H (11.5-14.0) % Plt Count 121 L (150-450) K/mm3 Sodium 139 (136-145) mEq/L Potassium 4.3 (3.5-5.1) mEq/L Chloride 102 (98-107) mEq/L Carbon Dioxide 28.6 (21-32) mEq/L Anion Gap 12.8 (5-15) MEQ/L BUN 46 H (9-20) mg/dL Creatinine 2.14 H (0.55-1.30) mg/dl Estimated GFR 23 ML/MIN Glucose 136 H (70-110) MG/DL Lactic Acid 3.1 H (0.4-2.0) Calcium 9.7 (8.5-10.1) mg/dL Prealbumin (18.0-35.7) mg/dL 09/30/16 Range/Units 05:07 WBC (4.0-10.5) K/mm3 RBC (4.1-5.4) M/mm3 Hgb (12.0-16.0) gm/dl Hct (35-47) % MCV (78-100) fl MCH (26-32) pg MCHC (32-36) g/dl RDW (11.5-14.0) % Plt Count (150-450) K/mm3 Sodium (136-145) mEq/L Potassium (3.5-5.1) mEq/L Chloride (98-107) mEq/L Carbon Dioxide (21-32) mEq/L Anion Gap (5-15) MEQ/L BUN (9-20) mg/dL Creatinine (0.55-1.30) mg/dl Estimated GFR ML/MIN Glucose (70-110) MG/DL Lactic Acid (0.4-2.0) Calcium (8.5-10.1) mg/dL Prealbumin 19.5 (18.0-35.7) mg/dL - Other Procedures and Tests Respiratory Therapy 09/30/16 05:03 neb [Respiratory Nebulizer] PRN Assessment/Plan (1) Atrial fibrillation with RVR Status: Acute Assessment & Plan: with fluid overload and respiratory failure as well as resulting in hypoxemia and acute kidney injury and acute liver failure as well. discussed the treatment options with her and her nieces and she wants us to consult hospice and be kept comfortable and not be kept on any life sustaining measures other then some oxygen. these arrangments will be made and discharge back to [facility] Code(s): I48.91 - UNSPECIFIED ATRIAL FIBRILLATION (2) Acute respiratory failure with hypoxemia Status: Acute Code(s): J96.01 - ACUTE RESPIRATORY FAILURE WITH HYPOXIA (3) Hypertension Status: Acute Code(s): I10 - ESSENTIAL (PRIMARY) HYPERTENSION (4) Chronic back pain Status: Chronic Code(s): M54.9 - DORSALGIA, UNSPECIFIED; G89.29 - OTHER CHRONIC PAIN (5) Osteoarthritis Status: Chronic Code(s): M19.90 - UNSPECIFIED OSTEOARTHRITIS, UNSPECIFIED SITE (6) Osteoporosis Status: Chronic Code(s): M81.0 - AGE-RELATED OSTEOPOROSIS W/O CURRENT PATHOLOGICAL FRACTURE (7) Acute kidney injury Status: Acute Code(s): N17.9 - ACUTE KIDNEY FAILURE, UNSPECIFIED (8) Acute liver failure Status: Acute
--- NOTE | 2016-09-30 08:44 | XRAY ---
Indication: Respiratory distress. Comparison: September 07, 2016. Portable chest underinflated today again with cardiomegaly, vascular congestion, and bibasilar infiltrates/atelectasis/effusion favoring cardiac decompensation. Superimposed pneumonia not completely excluded. Comment: Preliminary interpretation was made by [facility]. No discrepancy.
[2016-09-30] MEDS ORDERED: MAXIPIME 1 GM** 1 G in Dextrose 5%/Water IV Soln. 100ML PLUS BAG 100 ML IV SCH (10:00)
[2016-09-30] MEDS ORDERED: Pepcid 20 MG VIAL IV SCH (10:00)
[2016-09-30 11:11] VITALS: BP 100/70
[2016-09-30 11:18] VITALS: PULSE 124; O2SAT 93
--- NOTE | 2016-09-30 12:38 | PCM.DCORD ---
- Discharge Discharge Date: 09/30/16 Disposition: DC TO [facility] Condition: Fair Prescriptions: New Lorazepam 20 mg/10 ml Mdv [Ativan 20 MG/10 ML MDV] 1 mg SL Q2H PRN #10 ml PRN Reason: Anxiety/Agitation Morphine Sulfate [Roxanol] 0.5 ml PO Q2H PRN #10 ml PRN Reason: Pain Continue Fentanyl 50Mcg Patch [Duragesic 50MCG Patch] 50 mcg TD 2XW Discontinued Gabapentin 200 mg PO TID Diphenhydramine HCl 25 mg [Benadryl 25 mg Capsule] 25 mg PO Q4H PRN PRN PRN Reason: itching/rash Acetaminophen 325 mg [Tylenol 325 mg] 650 mg PO Q4HPRN PRN PRN Reason: pain/fever Hydrocodone Bit/Acetaminophen [[place] 5-325 Tablet] 1 tab PO Q6HPRN PRN PRN Reason: Pain Furosemide 40 mg [Lasix 40 MG] 40 mg PO DAILY Heparin Flush 500 units/5 ml [Heparin Lock Flush 100 Units/ml 5ml Syringe ] 50 units IV BID Metoprolol Tartrate 50 mg [Lopressor 50 MG] 100 mg PO BID #0 tablet Potassium Chloride 8 meq PO DAILY Apixaban [Eliquis] 2.5 mg PO BID Magnesium Hydroxide 30 ml [Milk of Magnesia 30 ml] 30 ml PO DAILY PRN PRN PRN Reason: Constipation Additional Instructions: Consult Hospice services Follow up with: CARMEN EDWARDS [Primary Care Provider] -
== END 2016-09-30 14:50 | DRG 308 ==
LOC: ED 23:25 → ICU 09-30 01:14
PROVIDERS: ADMIT Family Medicine; ATTEND Family Medicine
DX: I48.91 Unspecified atrial fibrillation (principal); J96.01 Acute respiratory failure with hypoxia; K72.00 Acute and subacute hepatic failure without coma; N17.9 Acute kidney failure, unspecified; I10 Essential (primary) hypertension; M54.9 Dorsalgia, unspecified; M19.90 Unspecified osteoarthritis, unspecified site; M81.0 Age-related osteoporosis without current pathological fracture; Z86.73 Personal history of transient ischemic attack (TIA), and cerebral infarction without residual deficits; I25.10 Atherosclerotic heart disease of native coronary artery without angina pectoris; F41.9 Anxiety disorder, unspecified; Z79.01 Long term (current) use of anticoagulants; Z79.899 Other long term (current) drug therapy
CPT/HCPCS: 36000; 36415; 36600; 51702; 71010; 80048; 80053; 81000; 82375; 82803; 83605; 83690; 83735; 83880; 84134; 84484; 85025; 85027; 85610; 85730; 87040; 87086; 93005; 93041; 94002; 94640; 96374; 96375; 99285; J0692; J1720; J1940; J3010; A9270-GY